=== PATIENT | male | born 1945 | race Caucasian/White ===

== ENCOUNTER → 2019-10-22 16:42 | Outpatient (CLI) | payer MEDICARE, OTHER, SELFPAY ==
[2019-10-22 17:59] LABS: PSA,Total- Diagnostic 7.76 ng/mL (0.0-4.0)
== END ==
PROVIDERS: Urology; Family Provider Family Medicine; PCP Family Medicine; Referring Provider Nurse Practitioner Adult Health; Visit Provider Nurse Practitioner Adult Health
DX: R97.20 Elevated prostate specific antigen [PSA] (principal)
CPT/HCPCS: 36415; 84153

== ENCOUNTER → 2019-11-16 08:00 | Outpatient (CLI) | payer MEDICARE, OTHER, SELFPAY ==
--- NOTE | 2019-11-16 | IMM_PTH ---
PATIENT: AUTUMN WEN LOC: [facility] U#:[id number] AGE/SX: 80/M ROOM: RE11/16/[address]: Dr. Zachary Irby MD : 1945 BED: DIS: SPEC #: [id number] RECD: 11/18/19 12:08 STATUS: VINNY ZHOU #: [id number] RENETTA: 11/16/19 00:[address]: Zachary Irby DEPT: IMMUNOHISTOCHEMISTRY RECD BY: Tiana Huertas Tissues: C - PROSTATE RIGHT Procedures: P40 (add) 34BE12 (initial) PHYSICIAN & INSTITUTION [place] [id number] SPECIMEN INFORMATION: Tissue Source: C - Right prostate, base, core biopsy Clinical Info: Elevated PSA Specimen Number: [id number] CPT code: 59931, 25536 METHODOLOGY: Deparaffinized sections of prefer/formalin-fixed tissue or PAP/DQ stained slides are incubated with monoclonal/polyclonal antibodies/oligonucleotide probes. Localization is made via biotin free immunoperoxidase method. Appropriate controls are performed and reacted as expected. Results on target cell population are indicated in the following table: RESULTS: ANTIBODY / CLONE RESULT Block C P40 (BC28) positive 34BE12 (34BE12) positive These tests were developed and their performance characteristics determined by [facility]. They may not have been cleared or approved by the U.S. Food and Drug Administration. The FDA has determined that such clearance or approval is not necessary. The above immunohistochemical/dualISH markers are ordered and reviewed by the Pathologist. INTERPRETATION: C. Right prostate, base, core biopsy: Focal high-grade prostatic intraepithelial neoplasia (HGPIN). SJ:osman 11/18/19
--- NOTE | 2019-11-16 08:00 | PROSBIL_PTH ---
PATIENT: AUTUMN WEN LOC: [facility] U#:[id number] AGE/SX: 80/M ROOM: RE11/16/[address]: Dr. Zachary Irby MD : 1945 BED: DIS: SPEC #: [id number] RECD: 11/17/19 10:33 STATUS: VINNY ZHOU #: [id number] RENETTA: 11/16/19 08:[address]: Zachary Irby DEPT: SURGICAL PATHOLOGY RECD BY: Joey Anderson Tissues: A - PROSTATE RIGHT B - PROSTATE RIGHT C - PROSTATE RIGHT D - PROSTATE LEFT E - PROSTATE LEFT F - PROSTATE LEFT Procedures: PROSTATE BX HEADER OPERATION: Prostate biopsy PRE-OP DIAGNOSIS: Elevated PSA TISSUE SUBMITTED: A - Right apex, B - Right mid, C - Right base, D - Left apex, E - Left mid, F - Left base MICROSCOPIC DIAGNOSIS A. Right prostate, apex, core biopsy: Prostatic tissue, negative for malignancy. B. Right prostate, mid, core biopsy: Prostatic tissue, negative for malignancy. Focal mild chronic inflammation. C. Right prostate, base, core biopsy: Focal high-grade prostatic intraepithelial neoplasia (HGPIN). Focal mild chronic inflammation. See comment. D. Left prostate, apex, core biopsy: Prostatic adenocarcinoma. Jayson grade: 4+3=7 Number of cores involved: 2/2 Proportion of tissue involved: ~60% Perineural invasion: Not identified. Greatest tumor length: 0.6 cm Focal acute and chronic inflammation. E. Left prostate, mid, core biopsy: Prostatic adenocarcinoma. Jayson grade: 3+3=6 Number of cores involved: 1/2 Proportion of tissue involved: ~15% Perineural invasion: Not identified. Greatest tumor length: 0.4 cm F. Left prostate, base, core biopsy: Focal high-grade prostatic intraepithelial neoplasia (HGPIN). Focal mild acute and chronic inflammation. SJ:osman 11/18/19 COMMENT C. Immunohistochemistry ([id number]) supports the above diagnosis. MICROSCOPIC DESCRIPTION Slides are reviewed. GROSS DESCRIPTION A - Received is one container designated prostate, right apex. The specimen consists of two elongated fragments of light tobin-white soft tissue measuring 1 and 1.2 cm in length and 0.1 cm in diameter. The specimen is totally submitted in one cassette. B - Received is one container designated prostate, right mid. The specimen consists of two elongated fragments of light tobin-white soft tissue each measuring 1.2 cm in length and 0.1 cm in diameter. The specimen is totally submitted in one cassette. C - Received is one container designated prostate, right base. The specimen consists of two elongated fragments of light tobin-white soft tissue each measuring 1.5 cm in length and 0.1 cm in diameter. The specimen is totally submitted in one cassette. D - Received is one container designated prostate, left apex. The specimen consists of two elongated fragments of light tobin-white soft tissue each measuring 1.2 cm in length and 0.1 cm in diameter. The specimen is totally submitted in one cassette. E - Received is one container designated prostate, left mid. The specimen consists of two elongated fragments of light tobin-white soft tissue each measuring 1.2 cm in length and 0.1 cm in diameter. The specimen is totally submitted in one cassette. F - Received is one container designated prostate, left base. The specimen consists of two elongated fragments of light tobin-white soft tissue measuring 1 and 1.5 cm in length and 0.1 cm in diameter. The specimen is totally submitted in one cassette. / SJ:rg 11/17/19 TC:0 CPT: G0146
== END ==
LOC: LABSPEC 11-17 12:24
PROVIDERS: Visit Provider Urology
DX: R97.20 Elevated prostate specific antigen [PSA] (principal)
CPT/HCPCS: 88305; 88341; 88342; G0416

== ENCOUNTER → 2019-11-16 08:00 | Outpatient (CLI) | payer MEDICARE, OTHER, SELFPAY | PROVIDERS: PCP Family Medicine; Referring Provider Urology; Visit Provider Urology | DX: R97.20 Elevated prostate specific antigen [PSA] (principal) ==

== ENCOUNTER → 2020-01-11 07:12 | Outpatient (CLI) | payer MEDICARE, OTHER, SELFPAY ==
--- NOTE | 2020-01-11 07:29 | MRI_ITS ---
STUDY: MR PELVIS WITH AND WITHOUT CONTRAST (PROSTATE) REASON FOR EXAM: Male, 74 years old. Newly diagnosed prostate cancer TECHNIQUE: Standardized multiparametric prostate MRI with T1, T2, DWI/ADC sequences were obtained in 3 orthogonal planes, and dynamic contrast enhancement sequences. 13 ml of Dotarem contrast material was administered intravenously for the contrast portion of the examination. COMPARISON: None. FINDINGS: The prostate volume measures 34 mm3. The contours of the prostate gland are lobulated. There is minimal mass effect on the bladder base. The transition zone is heterogenous. 8 x 8 mm rounded low-density nodule of the left anterior mid transitional zone is best seen on image 15 of series 6 (and correlating diffusion-weighted image 107 of series 8). PI-RADS DWI score 4 - Focal markedly hypointense on ADC and markedly hyperintense on high b-value DWI; < 1.5 cm on axial. PI-RADS T2W score 4 - Non-circumscribed, homogeneous, moderately hypointense, and <1.5 cm in greatest dimension. Contrast enhancement (+) Focal, earlier or contemporaneous with enhancement of adjacent normal prostatic tissues, and corresponding to a suspicious finding on T2WI and/or DWI. The peripheral zone is heterogenous. Areas of increased T1 signal intensity may represent areas of previous biopsy. PI-RADS DWI score 2 - Linear/wedge shaped hypointense on ADC and/or linear/wedge shaped hyperintense on high b-value DWI. PI-RADS T2W score 2 - Linear, wedge-shaped, or diffuse mild hypointensity, usually with indistinct margin. Contrast enhancement no early or contemporaneous enhancement; or diffuse multifocal enhancement NOT corresponding to a focal finding on T2W and/or DWI or focal nhancement responding to a lesion demonstrating features of BPH onT2WI (including features of extruded BPH in the PZ). There are bilateral seminal vesicle cysts, considered benign. No mass lesion or invasion depicted. The rectoprostatic angles are normal. Urinary bladder is normal without wall thickening. The vascular structures of the are normal. The visualized hollow viscus structures are normal. On postcontrast T1 images (series 12, images 8-10) and T2 axial images (series 10 images 8-10), there is abnormal T2 signal intensity and enhancement of left side of the sacrum. There is conspicuous facet arthropathy of the lumbosacral spine. MRI/Pelvis W/WO Contrast IMPRESSION: 1. PIRADS v2.1 2019 -- 4 - High (clinically significant cancer is likely) in the anterior mid left transitional zone. 2. Localized abnormal signal intensity and contrast enhancement of the upper left sacrum could be related to degenerative changes although given contrast enhancement, a bone neoplasm is possible. Dedicated thoracic spine MRI recommended. Electronically Signed: Alexys Varner MD ([place]) at 16:08 EDT , Service support ,
--- NOTE | 2020-01-11 07:54 | RAD_ITS ---
STUDY: X-RAY - ORBITS REASON FOR EXAM: Male, 74 years old. Pre MRI, h/o metal in eye -- unsure which eye TECHNIQUE: 2 view(s) of the orbits were obtained. COMPARISON: None. FINDINGS: Normal bilateral orbits without a metallic orbital foreign body. Normal visualized facial bones. Normal paranasal sinuses. The soft tissue structures are unremarkable. RAD/Orbits for Foreign Body IMPRESSION: No demonstrated metallic orbital foreign body. The patient is cleared for an MRI examination. Electronically Signed: Abad Uribe, at 8:29 EDT , Service support ,
[2020-01-11 08:01] LABS: CREATININE FINGERSTICK 0.7 mg/dL (0.70-1.30)
== END ==
PROVIDERS: PCP Family Medicine; Referring Provider Urology; Visit Provider Urology
DX: C61 Malignant neoplasm of prostate (principal)
CPT/HCPCS: 70030; 72197; A9575

== ENCOUNTER → 2020-01-18 10:13 | Outpatient (CLI) | payer MEDICARE, OTHER, SELFPAY ==
--- NOTE | 2020-01-18 10:17 | NM_ITS ---
CLINICAL: 74-year-old male with reported history of carcinoma of the prostate. WHOLE BODY 99m Tc MDP RADIONUCLIDE BONE SCINTIGRAPHY COMPARISON: MRI of the pelvis report 01/11/2020 FINDINGS: Following the intravenous administration of 27.9 mCi of 99m Tc MDP, whole body bone images reveal: 1. Increased radiopharmaceutical concentration is identified in the right anterior third rib at the costochondral junction. 2. Enhanced uptake is defined in the mid cervical spine posteriorly on the left, second-fifth lumbar vertebra, left posterior sacrum, right knee, bilateral elbows, left wrist, right and left hands, glenohumeral compartments of both shoulders. 3. The remaining skeletal structures are scintigraphically unremarkable with normal-appearing renal images and urinary bladder activity identified. A subtle diffuse increase in tracer uptake is noted in the left frontal, lacrimal and zygomatic osseous structures. NM/Bone Scan Whole Body IMPRESSION: 1. The increase in radiopharmaceutical concentration identified in the right anterior third rib is most consistent with trauma-fracture. Facilitated uptake noted in the left hemicalvarium may be further investigated with plain film radiography in the setting of known prostate carcinoma. 2. Degenerative arthritis appears expressed in the cervical and lumbar spine, bilateral shoulders and elbows, left wrist, hands bilaterally, the right knee most consistent with degenerative arthritis. A component of large articulation synovial inflammation is a diagnostic consideration involving the glenohumeral compartments of both shoulders. 3. There is no definitive typical scintigraphic evidence of diffuse axial skeletal metastatic disease. Electronically Signed: Juventino Godinez DO at 23:29 EDT Tel , Service support ,
== END ==
PROVIDERS: PCP Family Medicine; Referring Provider Urology; Visit Provider Urology
DX: C61 Malignant neoplasm of prostate (principal)
CPT/HCPCS: 78306

== ENCOUNTER → 2020-02-27 10:46 | Outpatient (CLI) | payer MEDICARE, OTHER, SELFPAY ==
[2020-02-27 11:50] LABS: PSA,Total - Annual Screen 6.34 ng/mL (0.00-4.00)
== END ==
PROVIDERS: Family Provider Family Medicine; PCP Family Medicine; Referring Provider Nurse Practitioner Adult Health; Visit Provider Nurse Practitioner Adult Health
DX: R97.20 Elevated prostate specific antigen [PSA] (principal)
CPT/HCPCS: 36415; 84153; G0103

== ENCOUNTER 2020-03-23 05:56 | Day surgery (SDC) | payer MEDICARE, OTHER, SELFPAY ==
[2020-02-27 11:22] LABS: Hematocrit 43.3 % (40-54); Hemoglobin 14.1 g/dL (13.0-16.5); Mean Corp Hgb Conc 32.6 g/dL (32-36); Mean Corpuscular Hgb 29.5 pg (27.0-32.0); Mean Corpuscular Volume 90.6 fL (80-94); Mean Platelet Vol. 10.4 fl (6.2-12.0); Platelet Count 201 K/mm3 (150-450); RBC Distribution Width CV 13.3 % (11.6-14.6); RBC Distribution Width SD 44.2 fl (35.1-43.9); Red Blood Count 4.78 M/mm3 (4.6-6.2); White Blood Count 6.1 K/mm3 (4.4-11.0)
--- NOTE | 2020-02-27 11:29 | EKG12_ITS ---
Test Reason : PRE-OP Blood Pressure : / mmHG Vent. Rate : 064 BPM Atrial Rate : 064 BPM P-R Int : 174 ms QRS Dur : 130 ms QT Int : 422 ms P-R-T Axes : 029 -02 054 degrees QTc Int : 435 ms Normal sinus rhythm Left bundle branch block Abnormal ECG Confirmed by LOUIS GARCIA, CASEY ([id number]), science editor MICHELE STOKES ([id number]) on 02/29/2020 3:12:00 PM Referred By: Zachary Irby Confirmed By:CASEY MYERS MD
[2020-02-27 11:45] LABS: Anion Gap 5 (5-15); BUN 23 mg/dL (7-18); Calcium,Total 8.6 mg/dL (8.5-10.1); Chloride 107 mmol/L (98-107); Creatinine, Serum 0.85 mg/dL (0.70-1.30); EST Glomerular Filtration Rate 94 mL/min (>60); Est Glom Filt Rate - Afr Amer 113 mL/min (>60); Glucose 133 mg/dL (74-106); Potassium 4.2 mmol/L (3.5-5.1); Sodium Level 141 mmol/L (136-145)
[2020-03-02 14:00] VITALS: BMI 25.7
[2020-03-23] VITALS (14 sets, daily range): BP systolic 92–119; BP diastolic 47–72; PULSE 55–78; RESP 15–18; TEMP 36–37.1; O2SAT 94–99; BMI 24.4
--- NOTE | 2020-03-23 | PROST_PTH ---
PATIENT: AUTUMN WEN LOC: [facility] [place] U#:[id number] AGE/SX: 74/M ROOM: RE03/23/[address]: Dr. Zachary Irby MD : 1945 BED: DIS: 03/24/2020 SPEC #: [id number] RECD: 03/23/20 13:59 STATUS: VINNY REQ #: [id number] RENETTA: 03/23/20 00:[address]: Zachary Irby DEPT: SURGICAL PATHOLOGY RECD BY: Isaiah Jovel ENTERED: 03/23/20 14:00 SP TYPE: PROSTATE OTHR DR: Dr. Corwin Bianchi, DO Tissues: A - Lymph node of pelvis, NOS B - Lymph node of pelvis, NOS C - Prostate, NOS D - Prostate, NOS Procedures: Surgery Specimen Level IV Surgery Specimen Level HEADER OPERATION: Lap robotic radical prostatectomy PRE-OP DIAGNOSIS: Prostatic adenocarcinoma TISSUE SUBMITTED: A - Right lymph node, B - Left lymph node, C - Apical margin, D - Prostate MICROSCOPIC DIAGNOSIS A. Right lymph node, biopsy: A piece of adipose tissue, negative for malignancy. No lymph node tissue is identified. B. Left lymph node, biopsy: One out of one lymph node, negative for metastatic carcinoma. C. Apical margin, biopsy: A piece of fibroadipose tissue, negative for carcinoma. D. Prostate, radical prostatectomy: Prostatic adenocarcinoma. See cancer summary in the comment section. SJ:osman 03/25/20 COMMENT PROSTATE CANCER (RADICAL) SUMMARY: Procedure: Radical Prostatectomy Prostate Size: Weight: 50 gm Size: 4.5 cm transversely, 4 cm superior inferiorly and 4 cm anterior posteriorly. Histologic type: Acinar adenocarcinoma Histologic grade: Grade group 4 (Pinson score 3+5=8) Percentage of Pattern 5: ~30% Tumor Quantitation: Estimated percentage of prostate involved by tumor: ~20% Tumor size: Left lobe - 1.4 x 1 measured microscopically, and about 3.5 cm craniocaudally, estimated (the tumor involves apical, mid and basal portion of prostate) Right lobe - 0.5 x 0.5 cm (measured microscopically and tumor involves apical and mid portion of the lobe. No gross nodule is identified. Extraprostatic Extension: Not present Urinary Bladder Neck Invasion: Not identified Seminal Vesicle Invasion: Not identified Lymphovascular Invasion: Not identified Perineural Invasion: Present Margins: Uninvolved by invasive carcinoma. See comment below. Regional Lymph Nodes: Number of lymph nodes involved by carcinoma: 0 Total Number of Lymph Nodes Examined: 1 Treatment Effect: No known presurgical therapy. Additional Pathologic Findings: Focal high-grade prostatic intraepithelial neoplasia. - Chronic inflammation. - Benign prostatic hyperplasia, glandular and stromal type. PATHOLOGIC STAGE: pT2 pN0 pMx The above summary is in compliance with [employer] [place] [employer] (CAP) Cancer Protocols Checklist and [place] [employer] Committee on Cancer (AJCC), Staging Manual, 8th Ed. The apical margin submitted separately is negative for carcinoma. The tumor is present in the apical margin submitted enface (block1) in the radical prostatectomy specimen (specimen D). Please make reference to previous specimen ([id number]) right prostate base and left prostate base, core biopsy with diagnosis of focal high-grade prostatic intraepithelial neoplasia (HGPIN) and left prostate, apex and left prostate, mid, core biopsy with diagnosis of prostatic adenocarcinoma. Case has been reviewed in consultation with Dr. Soliz who concurs with the above diagnosis. IDC:AM MICROSCOPIC DESCRIPTION Slides are reviewed. GROSS DESCRIPTION A - Received in fixative is one container labeled with the patient's name and designated right lymph node. The specimen consists of an irregular fragment of yellow soft tissue measuring 3.5 x 2 x 0.2 cm. The specimen is submitted in its entirety in one cassette. / AM: 03/23/20 B - Received in fixative is one container labeled with the patient's name and designated left lymph node. The specimen consists of an irregular fragment of yellow soft tissue measuring 3.5 x 2 x 0.2 cm. The specimen is sectioned and totally submitted in two cassettes. / AM: 03/23/20 C - Received in fixative is one container labeled with the patient's name and designated apical margin. The specimen consists of an irregular fragment of rubbery, pink tissue measuring 0.6 x 0.5 x 0.1 cm. The specimen is totally submitted in one cassette. / AM: 03/23/20 D - Received in fixative is one container labeled with the patient's name and designated prostate. The specimen consists of a prostate measuring 4.5 cm transversely, superior inferior margin is 4 cm, anterior posterior margin is 4 cm. The seminal vesicles together measure 4.5 x 4 x 1 cm. The prostate gland weighs 50 gm. The specimen is differentially inked as follows: right - blue, left - green, anterior - red, and entire posterior surface - black. / AM:osman 03/23/20 Serial sections do not reveal mass lesions. [place] [employer] sections are submitted as follows: 1 - distal urethral margin, shave, 2 - bladder neck, shave, 3 - seminal vesicles, 4 - most basal section of prostate, 5-9 - apex, 8-15 - mid portion of prostate, 16-18 - base of prostate. Note, approximately 95% of the prostate is submitted for microscopic examination. / AM:osman 03/24/20 TC:0 CPT: 61538, 57252 x3
[2020-03-23] MEDS: Lactated Ringers 1,000 ML 100 ML IV ×4 (06:51→11:43)
--- NOTE | 2020-03-23 07:23 | HP.PCM_ITS ---
History of Present Illness Date of Admission: 03/23/20 Chief Complaint: Prostate cancer The patient is a 74 year old male with prostate cancer was elected undergo radical prostatectomy. We plan to proceed with surgery today all his questions were addressed. Past Medical History Past Medical History (Chronic Problems): Chronic Problems (Last Reviewed 03/02/20 @ 16:[address] Charles Fernando MD) Hyperlipidemia (Chronic) History of left heart catheterization (Chronic 06/12/13) Medical History: Medical History (Last Reviewed 03/02/20 @ 16:[address] Charles Fernando MD) Preop cardiovascular exam (Acute) Z01.810 Hyperlipidemia (Chronic) E78.5 Family history of malignant neoplasm of prostate (Acute) Z80.42 Allergies No Known Allergies Allergy (Verified 03/23/20 06:33) Home Medications: Ambulatory Orders Medication Instructions Recorded Echinacea 500 mg PO DAILY 02/26/20 Glucos Sul 2Kcl/MSM/Chond/C/Mn 1 pkt PO BID 02/26/20 [Glucosamine Chondroitin Cap] Multivitamin with Minerals 1 ea PO DAILY 02/26/20 [Multiple Vitamin] lactobacillus combination no.8 3 3,000 mmu cells PO DAILY 03/01/20 billion cell capsule Surgical History: Surgical History (Last Reviewed 03/02/20 @ 16:[address] Charles Fernando MD) History of left heart catheterization (Chronic) Onset Date: 06/12/13 Z98.890 History of facial surgery Z98.890 fixation of fractured cheekbone History of prostate biopsy Z98.890 History of repair of hiatal hernia Z98.890, Z87.19 Surgical History: no surgical history Smoking Status: Never smoker Tobacco Use: Non-smoker Review of Systems Constitutional: Denies: Chills, Fever, Weight Change HEENT: Denies: Head Aches, Sinus Congestion, Sinus Drainage Cardiovascular: Denies: Chest Pain, Palpitations Respiratory: Denies: Cough, Shortness of breath at rest, Sputum production Gastrointestinal: Denies: Abdominal Pain, Nausea, Vomiting Genitourinary: Denies: Dysuria Musculoskeletal: Denies: Joint Pain, Joint Tenderness Skin: Denies: Rash, Wounds Neurological: Denies: Numbness, Tingling, Focal weakness Psychiatric: Denies: Anxiety, Depression, Homicidal Ideations, Suicidal Ideations Hematologic/ Lymphatic: Denies: Easy Bruising, Easy Bleeding VTE Information - Inpt Only VTE Present on Admission: No VTE Mechan Device Prophylaxis: SCD's - Physical Exam Vitals/I&O's: Vital Signs Temp Pulse Resp BP Pulse Ox 98.1 F 76 15 119/65 97 03/23/20 06:34 03/23/20 06:34 03/23/20 06:34 03/23/20 06:34 03/23/20 06:34 Oxygen Delivery Method Room Air Weight: 64.5 kg Body Mass Index (BMI) 24.4 General: Alert, Oriented x3, Cooperative HEENT: Atraumatic, PERRLA, EOMI, Normocephalic Neck: Supple, No JVD, Negative Carotid Bruits Lungs: Clear to auscultation, Normal air movement Cardiovascular: Regular rate, No murmurs Abdomen: Bowel Sounds Present, Soft, Non Tender Extremities: No edema, Capillary Refill Less than 3 Seconds Skin: No rashes, No breakdown Musculoskeletal: No Tenderness to Palpation of Joints or Extremities Neurological: Cranial nerves II-XII grossly intact Psych/Mental Status: Normal Affect, Appropriate Laboratory Results 03/23/20 07:08: Blood Type Pending, Antibody Screen Pending 03/23/20 17:00: COVID-19 (TERA) Not Detected Current Medications Cefazolin Sodium 2 gm/ Sodium (Chloride) 110 mls @ 150 mls/hr IV PREOP ONE Stop: 03/23/20 07:43 Lactated Ringer's () 1,000 mls @ 100 mls/hr IV .Q10H [facility] Last Admin: 03/23/20 06:51 Dose: 100 mls/hr Documented by: Lactated Ringer's () 1,000 mls @ 100 mls/hr IV .Q10H [facility] Last Admin: 03/23/20 06:52 Dose: 100 mls/hr Documented by: Assessment/Plan All Active Problems (Last Reviewed 03/02/20 @ 16:[address] Charles Fernando MD) Dizziness (Acute) Left bundle branch block (Acute) Preop cardiovascular exam (Acute) Family history of malignant neoplasm of prostate (Acute) 74-year-old male with prostate cancer plan to proceed with a radical prostatectomy bilateral nerve sparing and bilateral lymph node dissection. Please see my office notes for full details we talked about the risk of the surgery including risk of bleeding, infection, incontinence, erectile dysfunction, and the risk of anesthesia with surgery. All his questions were addressed and proceed he signed the consent form.
[2020-03-23] MEDS: Cefazolin 2 GM in 0.9% Normal Saline 100 ML IV (07:24)
--- NOTE | 2020-03-23 07:29 | DCINST_ITS ---
Discharge Diet: Light diet - advance as tolerated Discharge Activity: May Not Drive, May not drive while taking narcotic pain medications., May Shower Return to work on:: 05/04/20 May shower in (days): 1 Lifting Restrictions: no lifting > 10 pounds for 6 weeks Call your doctor if your incision/area has: Continuous Slow Oozing, Sudden Increased Bleeding, Increased Pain/ Swelling, Increased Redness, Foul Smelling Discharge, Swelling at the incision site Call your doctor if you observe: Fever of 101 or Higher, Inability to have a bowel movement, Uncontrolled pain Suture Line Care: Avoid Pulling/Pushing, Avoid Pinching/Bending Cleanse incision/area with: Soap & Water Catheter: Sanders to leg bag, Sanders to large bag Drain: [place] Instructions: Radical Prostatectomy Allergies/Adverse Reactions: Allergies No Known Allergies Allergy (Verified 03/23/20 06:33) Medications to take at Discharge Echinacea 500 mg PO DAILY 02/26/20 Glucos Sul 2Kcl/MSM/Chond/C/Mn [Glucosamine Chondroitin Cap] 1 pkt PO BID 02/26/20 Multivitamin with Minerals [Multiple Vitamin] 1 ea PO DAILY 02/26/20 lactobacillus combination no.8 3 billion cell capsule 3,000 mmu cells PO DAILY 03/01/20 Orders to be completed after discharge: 12 Lead EKG [[facility]] Time Frame: 02/26/20, Facility: [facility], Location: Cardiovascular Services Primary Care Physician: Corwin Bianchi DO [Primary Care Provider] - Test Results: Test results from this visit will be discussed in further detail at your follow- up appointment, if applicable. Please Follow Up With: Zachary Irby MD When: please call to make an appointment- 10 days Proposed Discharge Date: 03/24/20
[2020-03-23] MEDS: Bupivacaine Mpf 0.5% 30 ML VIAL (07:57)
--- NOTE | 2020-03-23 10:39 | OP.PCM_ITS ---
Report of Operation Date of Procedure: 03/23/20 Pre-Operative Diagnosis: Prostate cancer Post-Operative Diagnosis: Same Surgery/Procedure Performed:: Multiple procedures, #1 laparoscopic robotic assisted radical prostatectomy, #2 bilateral pelvic lymph node dissection, #3 suture suspension of the urethra to prevent incontinence Description of Surgical Findings:: 74-year-old male with a history of prostate cancer is elected to go no radical p rostatectomy order to do bilateral nerve sparing. 74-year-old male was taken back to the operating room at the smooth induction of general anesthesia he was placed prone on the table we went through the umbilicus and placed the camera port the robotic ports were placed into the peritoneum docked the robot we then went posterior to the bladder open up the peritoneum over the seminal vesicle and vas deferens dissected out the vas deferens and seminal vesicles all the way up to the apex of the prostate pulled out of the pelvis drop the bladder created the space of Retzius with the bladder on traction I then performed the lymph node dissection on the left side of the pelvic lymph node sosa of the external iliac vein 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 We then went to the prostate but the prostate on traction incised endopelvic fascia on both the right and left sides we placed a stitch in the dorsal vein complex came back to the bladder neck release the prostate and the bladder off the prostate I found a very large prostate had to do a very wide dissection of the bladder and it to get all the prostate off and then went posterior once we got the bladder dissected off the prostate the seminal vesicle and vas deferens were ready dissected out but the prostate and traction we released the neurovascular bundle on the right side placed the took the clips on the right pedicle and then released release neurovascular bundles on the right side all the way to the apex and went to the left left side release the neurovascular bundles the left side took the pedicle to clips the nerve sparing the left side was not as good as the right but still there was a nerve sparing performed. After this then the prostate transected through the dorsal vein complex there is no bleeding we lowered the pressure there was no bleeding we then transected through the urethra remove the prostate was sent off the apical tissue to check the margin and the lymph nodes were sent off as well. Placed the prostate in Endo Catch bag and then we reconstructed the bladder neck with a 3-0 Vicryl once this was reconstructed then we did a suture suspension of the urethra and then the using a 3-0 Vicryl and then we completed the anastomosis with the running V lock stitch between the bladder neck and the urethra. Once the anastomosis was completed we extracted the prostate through the lateral port and closed the umbilical port with a Liban Soto stitch the robot was undocked we inspected the abdomen after the ports were removed there is no bleeding or signs of injury or and all the ports were closed and then that we closed the skin with subcuticular stitches patient's anesthetic was reversed taken back to PACU in good condition. Type of Anesthesia:: General Drains: loya - Admit VTE Documentation VTE Present on Admission: No VTE Mechan Device Prophylaxis: SCD's
[2020-03-23] MEDS: Ketorolac 15 MG/ML Vial IV ×3 (11:19→21:46)
[2020-03-23] MEDS: Ciprofloxacin 400 MG/200 ML BAG 200 MG IV ×2 (12:04→21:46)
[2020-03-23] MEDS: 0.9% Saline Lock 10 ML Syringe IV (17:13)
--- NOTE | 2020-03-23 19:44 | NURSING ---
called Duyen and provided with update on pt status
[2020-03-23] MEDS: 0.45% Normal Saline 1,000 ML 125 ML IV (21:45)
[2020-03-24 01:26] VITALS: BP 101/64; PULSE 67; RESP 16; TEMP 36.9; O2SAT 94; BMI 24.4
[2020-03-24] MEDS: Ketorolac 15 MG/ML Vial IV (04:49)
[2020-03-24] MEDS: 0.45% Normal Saline 1,000 ML 125 ML IV (04:51)
[2020-03-24 05:03] VITALS: BP 100/60; PULSE 64; RESP 17; TEMP 37; O2SAT 95
[2020-03-24 05:05] VITALS: BMI 24.4
[2020-03-24 06:12] LABS: Hematocrit 35.6 % (40-54); Hemoglobin 11.3 g/dL (13.0-16.5); Mean Corp Hgb Conc 31.7 g/dL (32-36); Mean Corpuscular Hgb 29.5 pg (27.0-32.0); Mean Platelet Vol. 11.4 fl (6.2-12.0); Platelet Count 151 K/mm3 (150-450); RBC Distribution Width CV 13.7 % (11.6-14.6); RBC Distribution Width SD 46.6 fl (35.1-43.9); Red Blood Count 3.83 M/mm3 (4.6-6.2); White Blood Count 6.5 K/mm3 (4.4-11.0)
[2020-03-24 06:46] LABS: Anion Gap 7 (5-15); BUN 19 mg/dL (7-18); BUN/Creat Ratio 21.3 RATIO (10-20); Chloride 104 mmol/L (98-107); Creatinine, Serum 0.89 mg/dL (0.70-1.30); EST Glomerular Filtration Rate 89 mL/min (>60); Est Glom Filt Rate - Afr Amer 107 mL/min (>60); Estimated Creatinine Clearance 62.82 ml/min; Glucose 83 mg/dL (74-106); Potassium 3.9 mmol/L (3.5-5.1); Sodium Level 136 mmol/L (136-145)
--- NOTE | 2020-03-24 07:37 | DS.PCM_ITS ---
Discharge Date and Diagnosis Date of Admission: 03/23/20 Date of Discharge: 03/24/20 - Secondary Discharge Diagnosis Chronic Problems: Chronic Problems (Last Reviewed 03/02/20 @ 16:[address] Charles Fernando MD) Hyperlipidemia (Chronic) History of left heart catheterization (Chronic 06/12/13) Hospital Course and Treatment Operations: - - Radical robotic prostatectomy Procedures: None Summary of Care Provided: The patient is a 74 year old healthy male who has a history of prostate cancer elected to undergo a radical robotic prostatectomy surgery went well, overnight had no issues, and today is to advance diet to regular food ambulate and he can go home later today with a catheter. - Physical Exam Vitals/I&O's: Vital Signs Temp Pulse Resp BP Pulse Ox 98.6 F 64 17 100/60 95 03/24/20 05:03 03/24/20 05:03 03/24/20 05:03 03/24/20 05:03 03/24/20 05:03 Oxygen Flow Rate (L/min) 6 Oxygen Delivery Method Room Air Weight: 64.5 kg Body Mass Index (BMI) 24.4 Intake and Output for Last 24 Hours 03/22/20 03/23/20 03/24/20 23:59 23:59 23:59 Intake Total 4671.08 / 4671.08 2921.42 / 2921.42 Output Total 775 / 775 1050 / 1050 Balance 3896.08 / 3896.08 1871.42 / 1871.42 General: Alert, Oriented x3, Cooperative HEENT: Atraumatic, PERRLA, EOMI, Normocephalic Neck: Supple, No JVD, Negative Carotid Bruits Lungs: Clear to auscultation, Normal air movement Cardiovascular: Regular rate, No murmurs Abdomen: Bowel Sounds Present, Soft, Non Tender Extremities: No edema, Capillary Refill Less than 3 Seconds Skin: No rashes, No breakdown Musculoskeletal: No Tenderness to Palpation of Joints or Extremities Neurological: Cranial nerves II-XII grossly intact Psych/Mental Status: Normal Affect, Appropriate Laboratory Results 03/23/20 07:08: Blood Type A POSITIVE, Antibody Screen NEGATIVE 03/24/20 05:25: WBC 6.5, RBC 3.83 L, Hgb 11.3 L, Hct 35.6 L, MCV 93.0, MCH 29.5, MCHC 31.7 L, RDW Std Deviation 46.6 H, RDW Coeff of Cynthia 13.7, Plt Count 151, MPV 11.4 03/24/20 05:25: Sodium 136, Potassium 3.9, Chloride 104, Carbon Dioxide 25.0, Anion Gap 7, BUN 19 H, Creatinine 0.89, Estim Creat Clear Calc 62.82, Est GFR (MDRD) Af Amer 107, Est GFR (MDRD) Non-Af 89, BUN/Creatinine Ratio 21.3 H, Glucose 83, Calcium 8.0 L Current Medications Acetaminophen (Tylenol) 325 - 650 mg PO Q4H PRN PRN PRN Reason: pain score 1-10/fever/headache Hydrocodone Bitart/Acetaminophen ([place] 5mg-325mg) 1 - 2 tablet PO Q6H PRN PRN PRN Reason: Pain Score 1-5/10 Belladonna Alkaloids/Opium (B & O) 60 mg RECTAL Q6H PRN PRN PRN Reason: Spasm Sodium Chloride () 250 mls @ 15 mls/hr IV .[id number] PRN PRN Reason: Saline Flush Sodium Chloride () 250 mls @ 15 mls/hr IV .[id number] PRN PRN Reason: Additional IVPB Infusion Sodium Chloride () 1,000 mls @ 125 mls/hr IV .Q8H [facility] Last Admin: 03/24/20 04:51 Dose: 125 mls/hr Documented by: Ketorolac Tromethamine (Toradol (Bkc)) 15 mg IV Q6H [facility] Stop: 03/24/20 16:01 Last Admin: 03/24/20 04:49 Dose: 15 mg Documented by: Metoclopramide HCl (Reglan) 10 mg IV Q8H PRN PRN PRN Reason: Nausea/vomiting Morphine Sulfate () 1 mg IV Q4H PRN PRN PRN Reason: Pain Score 6-10/10 Ondansetron HCl (Zofran) 4 mg IV Q8H PRN PRN Reason: Nausea Sodium Chloride () 10 - 40 ml IV UD PRN PRN Reason: SALINE FLUSH Last Admin: 03/23/20 17:13 Dose: 10 ml Documented by: Tolterodine Tartrate (Detrol La) 4 mg PO DAILY PRN PRN PRN Reason: Spasms Discharge Diet: Light diet - advance as tolerated Discharge Activity: May Not Drive, May not drive while taking narcotic pain medications., May Shower Return to work on:: 05/04/20 May shower in (days): 1 Call your doctor if your incision/area has: Continuous Slow Oozing, Sudden Increased Bleeding, Increased Pain/ Swelling, Increased Redness, Foul Smelling Discharge, Swelling at the incision site Call your doctor if you observe: Fever of 101 or Higher, Inability to have a bowel movement, Uncontrolled pain Suture Line Care: Avoid Pulling/Pushing, Avoid Pinching/Bending Cleanse incision/area with: Soap & Water Catheter: Sanders to leg bag, Sanders to large bag Drain: [place] Home Medications: Medications to take at Discharge Echinacea 500 mg PO DAILY 02/26/20 Glucos Sul 2Kcl/MSM/Chond/C/Mn [Glucosamine Chondroitin Cap] 1 pkt PO BID 02/26/20 Multivitamin with Minerals [Multiple Vitamin] 1 ea PO DAILY 02/26/20 lactobacillus combination no.8 3 billion cell capsule 3,000 mmu cells PO DAILY 03/01/20 Ciprofloxacin [Cipro] 500 mg PO BID #20 tab 03/23/20 Docusate Sodium [Colace] 100 mg PO BID #20 cap 03/23/20 Hydrocodone/Acetaminophen [[place] 5-325 Tablet] 1 ea PO Q4H PRN PRN 5 Days #14 tab 03/23/20 Following Prescrptions Were Given to Patient: Ciprofloxacin [Cipro] 500 mg PO BID #20 tab Transmission Status: Received by [id number] Docusate Sodium [Colace] 100 mg PO BID #20 cap Transmission Status: Received by [id number] Hydrocodone/Acetaminophen [[place] 5-325 Tablet] 1 ea PO Q4H PRN PRN 5 Days #14 tab PRN Reason: Pain Score 1-10/10 Transmission Status: Received by [id number] Other Amb Orders: 12 Lead EKG [[facility]] Time Frame: 02/26/20, Facility: [facility] [place], Location: Cardiovascular Services Primary Care Physician: Corwin Bianchi DO [Primary Care Provider] - Please Follow Up With: Zachary Irby MD When: please call to make an appointment- 10 days Patient Instructions: Radical Prostatectomy Medical Necessity - Tobacco Use Smoking Status: Never smoker Tobacco Use: Non-smoker Meaningful Use Info Meaningful Use Diagnoses (Choose all that apply): None applicable
[2020-03-24 08:12] VITALS: BP 106/54; PULSE 87; RESP 18; TEMP 37; O2SAT 98
[2020-03-24 08:29] VITALS: BMI 24.4
== END 2020-03-24 09:14 | disposition home or self-care (01) ==
LOC: SDC 05:56 → AC 05:57 → MS3 03-24 08:58
PROVIDERS: Anesthesiology; PCP Family Medicine; Referring Provider Urology; Visit Provider Urology
PROC: 0VT04ZZ Resection of Prostate, Percutaneous Endoscopic Approach (ICD-10-PCS; CPT 55866; principal; 2020-03-23 07:10)
DX: C61 Malignant neoplasm of prostate (principal); Z11.59 Encounter for screening for other viral diseases; Z80.42 Family history of malignant neoplasm of prostate; Z86.2 Personal history of diseases of the blood and blood-forming organs and certain disorders involving the immune mechanism
CPT/HCPCS: 00865; 38570; 55866; S2900; 36415; 80048; 85027; 86850; 86900; 86901; 87635; 88305; 88307; 88309; 93005; 99251; J7120; A4216; G0463; J0744; J2405; U0003

== ENCOUNTER 2020-06-02 11:37 | Emergency (ER) | payer MEDICARE, OTHER, SELFPAY ==
[2020-03-23 13:15] VITALS: BMI 24.4
[2020-06-02 11:40] VITALS: BP 117/68; PULSE 62; RESP 16; TEMP 36.3; O2SAT 96; BMI 23.4
--- NOTE | 2020-06-02 12:07 | ED.DCSUM_ITS ---
History of Present Illness Chief Complaint: General Illness Informant: Patient Narrative: 75-year-old male presenting with swallowing dysfunction. He states he feels like it is difficult to get food down. Patient had some kind of esophageal procedure done at [facility] by doctors by Dr. Saleh. He is having difficulty telling me what the procedure was. He brought no medical records with him. He states he is on no chronic medications. Does state that he recently had prostatectomy but was doing fine on those regards. Has not reached out to the him for any kind of follow-up. He called his GI doctor who is out of town. His GI doctors office recommended that he come to [place] [facility] however they did not want a go to [place]. Patient states that he was able to eat eggs and drink water this morning. he states if he chews food well it will stay down. He is able to drink water currently. He does describe some burning in his stomach. He states he is making urine and stool. Past Medical History - Allergies and Home Meds Allergies/Adverse Reactions: Allergies No Known Allergies Allergy (Verified 06/02/20 11:40) Primary Care Physician: Ruddy Quintero MD [STAFF PHYSICIAN] - Corwin Bianchi DO [Primary Care Provider] - Prior records reviewed: Yes Past Medical History: - - Hiatal hernia Surgical History: - - Felix fundoplication Smoking Status: Never smoker Review of Systems General: Denies: Chills, Fever, Sweats Eyes: Denies: Visual changes - bilaterally, Diplopia ENT: Reports: Rhinorrhea, Sore throat - Intermittent difficulty swallowing food and less chewed well. Cardiovascular: Denies: Chest pain, Palpitations Respiratory: Denies: Dyspnea, Cough, Dyspnea on exertion Gastrointestinal: Denies: Abdominal pain, Nausea, Vomiting, Diarrhea, Melena, Hematochezia Musculoskeletal: Denies: Myalgias, Arthralgias Skin: Denies: Rash, Abscess Neurological: Denies: Headache Psych: Denies: Depression, Anxiety Physical Exam Vital Signs/Narrative: Vital Signs Temp Pulse Resp BP Pulse Ox 06/02/20 11:40 97.4 F L 62 16 117/68 96 Inital Vital Signs reviewed: Yes General: Well nourished, Well developed Head: Normocephalic Eyes: Perrl, EOMI ENT: Moist mucous membranes Cardiovascular: Regular rate, Regular rhythm Respiratory: No distress Abdomen: Soft, Nontender, Nondistended, Normal bowel sounds Extremities: Negative for: Nontender, No edema Skin: Negative for: Normal color, No rash Neurological: Alert, Oriented x3 Psychological: Normal affect Diagnostic/Tx/Re-eval - Medical Decision Making Patient presents with difficulty swallowing. He states that sometimes food gets stuck and sometimes it does not. Currently he was able to eat breakfast and drink water and had no difficulty. I counseled him that he did not need anything emergently done but he probably did need an upper endoscopy and he should probably follow-up with his GI doctor. I did review the medical record and I believe based on what I have seen it looks like he had a dilatation of his esophagus by Dr. Saleh. The patient was still able to describe the procedure in full but does state that he went down his throat and he did not do any intra-abdominal surgery. Patient was counseled that he should try to follow-up with either him or his GI doctor on an outpatient basis. If his food becomes impacted and he cannot pass it that he should come back to the emergency room. His did express concern that he may become dehydrated. We did discuss that he states he can drink water however he does not want to and I did encourage him to drink water more frequently throughout the day instead of in large volumes to minimize the discomfort. She also was concerned that he may become weak because he is not eating a lot of food unless it soft. I encouraged him to try to supplement his diet with some Ensure or other similar drinks that are easily palatable. He acknowledged understanding of this. Patient will be discharged home in stable condition. Impression: 1. Dysphagia ED Disposition - Plan for ED Patient: Disposition: Home or Assisted Living Instructions: ED Dysphagia Adult Prescriptions: Sucralfate [Carafate] 1 gm PO 4X/DAY #30 [facility] [place] Transmission Status: Received by [facility]/pharmacy #[id number] Referrals: Corwin Bianchi DO [Primary Care Provider] - Ruddy Quintero MD [STAFF PHYSICIAN] -
[2020-06-02] MEDS: Mag Hydrox/Al Hydrox/Simeth 30 ML UDC PO (12:20)
== END 2020-06-02 12:42 | disposition home or self-care (01) ==
LOC: ED 12:36
PROVIDERS: Emergency Provider Student in an Organized Health Care Education/Training Program; PCP Family Medicine
DX: R13.10 Dysphagia, unspecified (principal); J34.89 Other specified disorders of nose and nasal sinuses; J02.9 Acute pharyngitis, unspecified
CPT/HCPCS: 99283

== ENCOUNTER → 2020-08-22 08:36 | Outpatient (CLI) | payer MEDICARE, OTHER, SELFPAY ==
[2020-08-22 09:49] LABS: PSA,Total- Diagnostic < 0.01 ng/mL (0.0-4.0)
== END ==
PROVIDERS: PCP Family Medicine; Referring Provider Urology; Visit Provider Urology
DX: C61 Malignant neoplasm of prostate (principal)
CPT/HCPCS: 36415; 84153

== ENCOUNTER → 2021-02-21 06:18 | Outpatient (CLI) | payer MEDICARE, OTHER, SELFPAY ==
[2021-02-21 07:40] LABS: PSA,Total- Diagnostic < 0.01 ng/mL (0.0-4.0)
== END ==
PROVIDERS: PCP Family Medicine; Referring Provider Urology; Visit Provider Urology
DX: C61 Malignant neoplasm of prostate (principal)
CPT/HCPCS: 36415; 84153

== ENCOUNTER → 2021-05-22 08:49 | Outpatient (CLI) | payer MEDICARE, OTHER, SELFPAY ==
--- NOTE | 2021-05-22 08:51 | ECHOCS_ITS ---
Reason For Study: LV Dysfunction, Fatigue Procedure This was a 2D Doppler, Color Flow transthoracic echocardiogram. Contrast injection was performed. Exam performed in department. Left Ventricle Normal LV size. The estimated ejection fraction is 45 %. There is evidence of diastolic dysfunction. No regional wall motion abnormalities noted. Right Ventricle Normal RV size. Normal systolic function. Atria Normal left atrium. Normal right atrium. No doppler evidence for ASD. Mitral Valve There is moderate mitral annular calcification. There is no mitral valve stenosis. No mitral valve insufficiency. Tricuspid Valve There is no tricuspid stenosis. Mild (1+) tricuspid valve insufficiency. Pulmonary artery systolic pressure is 30-35 mmHg. Aortic Valve Trisinus/trileaflet aortic valve. There is no aortic stenosis. Mild (1+) aortic valve insufficiency. Pulmonic Valve There is no pulmonic valvular stenosis. Trivial pulmonic valve insufficiency. Great Vessels Mildly dilated aortic root. Pericardium/Pleural No pericardial effusion. Medication Diluted definity 3ml given slow IV push to enhance endocardial definition. MMode/2D Measurements & Calculations LVIDd: 4.7 cm IVSd: 0.91 cm Ao root diam: 4.0 cm LVIDs: 3.3 cm LVPWd: 1.0 cm RVDd: 4.2 cm FS: 29.6 % LAV(MOD-bp): 46.4 ml LVAd ap4: 31.6 cm2 LVAd ap2: 32.8 cm2 LAV(MOD-bp) Indexed: 27.6 ml/m2 LVLd ap4: 8.4 cm LVLd ap2: 8.3 cm LAV(MOD-sp2): 34.4 ml EDV(MOD-sp4): 99.7 ml EDV(MOD-sp2): 105.6 ml LAV(MOD-sp4): 56.5 ml EDV(sp4-el): 100.6 ml EDV(sp2-el): 110.3 ml LVAs ap4: 18.5 cm2 LVAs ap2: 19.2 cm2 LVLs ap4: 7.4 cm LVLs ap2: 6.8 cm ESV(MOD-sp4): 40.1 ml ESV(MOD-sp2): 45.0 ml ESV(sp4-el): 39.3 ml ESV(sp2-el): 46.1 ml EF(MOD-sp4): 59.8 % EF(MOD-sp2): 57.4 % EF(sp4-el): 61.0 % SV(MOD-sp4): 59.6 ml SV(MOD-sp2): 60.6 ml SV(sp4-el): 61.3 ml LA A4 area: 18.4 cm2 LA dimension(2D): 3.6 cm RA A4 area: 14.9 cm2 Doppler Measurements & Calculations MV E max mj: 46.8 cm/sec Lat Peak E' Mj: 5.9 cm/sec Med Peak E' Mj: 5.0 cm/sec MV A max mj: 69.8 cm/sec E/E' lat: 7.9 E/E' med: 9.3 MV E/A: 0.67 Ao V2 max: 146.7 cm/sec AI max mj: 445.7 cm/sec LV V1 max: 102.7 cm/sec Ao max P.6 mmHg AI max P.5 mmHg LV V1 max P.2 mmHg Ao V2 mean: 109.6 cm/sec AI dec slope: 238.4 cm/sec2 Ao mean P.2 mmHg AI P1/2t: 547.6 msec Ao V2 VTI: 30.1 cm PA V2 max: 110.7 cm/sec TR max mj: 251.7 cm/sec TR max P.3 mmHg ECHO/Echo Complete W/ Contrast Interpretation Summary The estimated ejection fraction is 45 %. There is evidence of diastolic dysfunction. Mild (1+) tricuspid valve insufficiency. Mild (1+) aortic valve insufficiency. Mildly dilated aortic root. Ordering Physician: Roma Fernando Referring Physician: Corwin Bianchi Performed By: Dionne Hernandez, RDCS, RVT
== END ==
PROVIDERS: PCP Family Medicine; Referring Provider Specialist; Visit Provider Specialist
DX: I44.7 Left bundle-branch block, unspecified (principal)
CPT/HCPCS: 93306; Q9957; A4216; C8929; J3490

== ENCOUNTER → 2021-07-17 07:59 | Outpatient (CLI) | payer MEDICARE, OTHER, SELFPAY ==
--- NOTE | 2021-07-17 08:01 | ECHOD_ITS ---
Reason For Study: Decreased EF Procedure This was a limited 2D transthoracic echocardiogram. Limited views were obtained. Exam performed in department. Left Ventricle Normal LV size. Mild segmental systolic dysfunction (see wall motion). The estimated ejection fraction is 40 %. Unable to assess diastolic dysfunction. Infero-Basal: Hypokinetic. Mid-Anterior : Hypokinetic. Mid-Lateral : Hypokinetic. Mid-Posterior: Hypokinetic. Mid-Inferior: Hypokinetic. Mid- inferoseptal : Hypokinetic. Mid-anteroseptal : Hypokinetic. Anna : Akinetic. Right Ventricle Normal RV size. Normal systolic function. Atria Normal left atrium. Normal right atrium. Mitral Valve There is mild mitral annular calcification. Normal mitral valve. Tricuspid Valve Normal tricuspid valve. Aortic Valve Trisinus/trileaflet aortic valve. Mild focal aortic valve calcification. Pulmonic Valve The pulmonic valve is not well visualized. Great Vessels Normal sized aortic root. Pericardium/Pleural No pericardial effusion. MMode/2D Measurements & Calculations LVIDd: 3.8 cm IVSd: 1.1 cm Ao root diam: 3.7 cm LVIDs: 2.3 cm LVPWd: 1.0 cm FS: 40.6 % LVAd ap4: 37.3 cm2 LVAd ap2: 32.0 cm2 SV(MOD-sp4): 71.9 ml LVLd ap4: 9.0 cm LVLd ap2: 8.6 cm EDV(MOD-sp4): 131.5 ml EDV(MOD-sp2): 96.6 ml EDV(sp4-el): 130.7 ml EDV(sp2-el): 101.0 ml LVAs ap4: 23.8 cm2 LVAs ap2: 20.1 cm2 LVLs ap4: 8.3 cm LVLs ap2: 8.0 cm ESV(MOD-sp4): 59.7 ml ESV(MOD-sp2): 44.6 ml ESV(sp4-el): 57.5 ml ESV(sp2-el): 42.9 ml EF(MOD-sp4): 54.7 % EF(MOD-sp2): 53.9 % EF(sp4-el): 56.0 % SV(MOD-sp2): 52.0 ml SV(sp4-el): 73.2 ml LA dimension(2D): 3.6 cm ECHO/Echo, Limited Study Interpretation Summary Limited views were obtained. Mild segmental systolic dysfunction (see wall motion). The estimated ejection fraction is 40 %. There is mild mitral annular calcification. Mild focal aortic valve calcification. Unable to assess diastolic dysfunction. Ordering Physician: Cassi Sprague/Arash Dejesus Referring Physician: Cassi Sprague Performed By: Nery Bobby RDCS
== END ==
PROVIDERS: PCP Family Medicine; Referring Provider Physician Assistant Medical; Visit Provider Physician Assistant Medical
DX: Z98.890 Other specified postprocedural states (principal)
CPT/HCPCS: 93308

== ENCOUNTER → 2021-08-28 07:34 | Outpatient (CLI) | payer MEDICARE, OTHER, SELFPAY ==
[2021-08-28 10:29] LABS: PSA,Total- Diagnostic 0.01 ng/mL (0.0-4.0)
== END ==
PROVIDERS: PCP Family Medicine; Referring Provider Urology; Visit Provider Urology
DX: C61 Malignant neoplasm of prostate (principal)
CPT/HCPCS: 36415; 84153

== ENCOUNTER → 2021-10-03 18:51 | Outpatient (CLI) | payer MEDICARE, OTHER, SELFPAY ==
--- NOTE | 2021-10-03 18:54 | CT_ITS ---
EXAM: CT MAXILLOFACIAL SINUSES WITHOUT INTRAVENOUS CONTRAST CLINICAL INDICATION: LEFT SINUS MASS TECHNIQUE: Helically acquired images were obtained of the maxillofacial sinuses without intravenous contrast. CTDI vol (mGy): 33 DLP vol (mGy-cm): [address] exam was performed using one or more of the following dose reduction techniques: automated exposure control, adjustment of the mA and/or kV according to patient size, and/or use of iterative reconstruction technique. This report was created using [employer] report [employer] technology. COMPARISON: None. FINDINGS: MAXILLARY SINUSES: Clear. Ostiomeatal complexes are normally formed. SPHENOID SINUSES: Clear. FRONTAL SINUSES: Clear. ETHMOID AIR CELLS: Expansile soft tissue mass involving the left ethmoid air cells. Masslike expansile process centered at the left ethmoid air cells. NASAL CAVITY/SEPTUM: Nasal septum is midline. Nasal turbinates are unremarkable. MASTOID AIR CELLS: Mastoid air cells and middle ears are clear. BONES/JOINTS: No acute or healing fracture or malalignment. No unusual lytic or sclerotic lesions of bone. ORBITS: Unremarkable. DENTAL: Unremarkable as visualized. No periodontal osseous erosion. OTHER FINDINGS: Scattered paranasal sinus mucosal thickening of the right. Opacified left paranasal sinuses. Airways are patent. Mild diffuse parenchymal atrophy. Atherosclerotic calcifications involving the vertebrobasilar arteries and carotid siphons. CT/Sinus/Facial Bone IMPRESSION: Expansile soft tissue mass centered at the left ethmoidal air cell region. Suggest ENT referral for further investigation. Electronically Signed: Bahman Barnes MD at 3:27 EST Tel , Service support ,
== END ==
PROVIDERS: PCP Family Medicine; Referring Provider Otolaryngology; Visit Provider Otolaryngology
DX: J32.9 Chronic sinusitis, unspecified (principal)
CPT/HCPCS: 70486

== ENCOUNTER → 2021-10-09 | Outpatient (CLI) | payer MEDICARE, OTHER, SELFPAY ==
--- NOTE | 2021-10-09 | IMM_PTH ---
PATIENT: AUTUMN WEN LOC: [facility] U#:[id number] AGE/SX: 76/M ROOM: RE10/09/[address]: Dr. Lauri López MD : 1945 BED: DIS: 10/09/2021 SPEC #: [id number] RECD: 10/11/21 14:42 STATUS: VINNY REQ #: [id number] RENETTA: 10/09/21 00:[address]: Lauri López DEPT: IMMUNOHISTOCHEMISTRY RECD BY: Tiana Huertas ENTERED: 10/11/21 14:45 SP TYPE: IMMUNO OTHR DR: Dr. Corwin Bianchi, DO Tissues: Nose, NOS Procedures: NAPSIN A (add) CK14 (add) CK20 (add) CK7 (add) CK8 (add) KI-67 (add) P53 (add) TTF1 (add) Vimentin (add) FACTOR VIII (add) Pankeratin (initial) GATA3 (add) P40 (add) CDX2 (add) PSAP (add) PHYSICIAN & [address] [address] SPECIMEN INFORMATION: Tissue Source: Left sinonasal mass Clinical Info: Left sinonasal mass Specimen Number: [id number] CPT code: 20481, 04984 x14 METHODOLOGY: Deparaffinized sections of prefer/formalin-fixed tissue or PAP/DQ stained slides are incubated with monoclonal/polyclonal antibodies/oligonucleotide probes. Localization is made via biotin free immunoperoxidase method. Appropriate controls are performed and reacted as expected. Results on target cell population are indicated in the following table: RESULTS: ANTIBODY / CLONE RESULT AE1-3 (AE1/AE3/PCK26) positive CK7 (OV-TL12/30) negative CK8 (24lbnuU14) positive CK20 (KS20.8) positive, focal CDX2 ([id number]) positive GATA3 (L50-823) negative Vimentin (V9) negative Factor VIII (R Ag) negative TTF-1 (8G7G3/1) negative Napsin A (Rabbit Polyclonal) positive PSAP (PASE/4LJ) negative CK14 (LL002) negative P40 (BC28) negative P53 (DO-7) positive, >90% Ki-67 (30-9) positive, >90% These tests were developed and their performance characteristics determined by [facility]. They may not have been cleared or approved by the U.S. Food and Drug Administration. The FDA has determined that such clearance or approval is not necessary. The above immunohistochemical/dualISH markers are ordered and reviewed by the Pathologist. INTERPRETATION: Left sinonasal mass, biopsy: Adenocarcinoma. AM:osman 10/12/2021 The case is sent to [facility] for expert opinion, reviewed by Dr. 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 The complete report is viewable in the patient's EMR. Case has been reviewed in consultation with Dr. Sterling who concurs with the above diagnosis. IDC:[id number]
--- NOTE | 2021-10-09 | NASAL_PTH ---
PATIENT: AUTUMN WEN LOC: [facility] U#:[id number] AGE/SX: 76/M ROOM: RE10/09/[address]: Dr. Lauri López MD : 1945 BED: DIS: 10/09/2021 SPEC #: [id number] RECD: 10/09/21 17:00 STATUS: VINNY ZHOU #: [id number] RENETTA: 10/09/21 00:[address]: Lauri López DEPT: SURGICAL PATHOLOGY RECD BY: Aminah Huitron ENTERED: 10/10/21 08:37 SP TYPE: NASAL SPEC OTHR DR: Dr. Corwin Bianchi, Tissues: NASAL POLYP Procedures: Surgery Specimen Level IV HEADER OPERATION: Biopsy PRE-OP DIAGNOSIS: Left sinonasal mass TISSUE SUBMITTED: Left sinonasal mass MICROSCOPIC DIAGNOSIS Left sinonasal mass, biopsy: Adenocarcinoma. See comment. AM:osman 10/18/2021 COMMENT Immunohistochemistry ([id number]) supports the above diagnosis. The specimen is sent to [facility] for expert opinion, reviewed by Dr. 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 This case is discussed with Dr. Montalvo again on 10/18/2021. The complete report is viewable in the patient's EMR. This case is discussed with Dr. López on 10/16/2021. MICROSCOPIC DESCRIPTION Slides are reviewed. GROSS DESCRIPTION Received in fixative is one container labeled with the patient's name and designated sinonasal mass. The specimen consists of two irregular fragments of red-tobin soft tissue that in aggregate measure 1 x 0.7 x 0.2 cm. The specimen is totally submitted in one cassette. / AM:osman 10/10/21 TC:0 CPT: 32395 ADDENDUM ADDENDUM ADDENDUM ADDENDUM ADDENDUM ADDENDUM ADDENDUM ADDENDUM ADDENDUM ADDENDUM 12/13/2021 10:52 ADDENDUM 12/13/2021 10:52 ADDENDUM 12/13/2021 10:52 ADDENDUM 12/13/2021 10:52 ADDENDUM 12/13/2021 10:52 This addendum is added to incorporate an outside pathology consultation report. The case was examined at [facility] (#[id number]) and the following diagnosis was rendered. Left sinonasal mass, biopsy: Adenocarcinoma, intestinal type. Please see complete above mentioned consultation report in EMR
== END | disposition home or self-care (01) ==
LOC: LABSPEC 10-10 10:25
PROVIDERS: PCP Family Medicine; Referring Provider Otolaryngology; Visit Provider Otolaryngology
DX: R22.0 Localized swelling, mass and lump, head (principal)
CPT/HCPCS: 88305; 88341; 88342

== ENCOUNTER → 2022-02-26 | Outpatient (CLI) | payer MEDICARE, OTHER, SELFPAY ==
[2022-02-26 09:59] LABS: PSA,Total- Diagnostic 0.02 ng/mL (0.0-4.0)
== END | disposition home or self-care (01) ==
LOC: LAB 08:17
PROVIDERS: PCP Family Medicine; Referring Provider Urology; Visit Provider Urology
DX: C61 Malignant neoplasm of prostate (principal)
CPT/HCPCS: 36415; 84153

== ENCOUNTER → 2022-08-01 | Outpatient (CLI) | payer MEDICARE, OTHER, SELFPAY ==
--- NOTE | 2022-08-01 14:56 | ECHOD_ITS ---
Reason For Study: CMP Procedure This was a 2D Doppler, Color Flow transthoracic echocardiogram. The exam was of adequate technical quality. Exam performed in department. Left Ventricle Mild segmental systolic dysfunction (see wall motion). The estimated ejection fraction is 50 %. Stage 1 diastolic dysfunction. Infero-Basal: Hypokinetic. Mid-Anterior : Hypokinetic. Mid-Lateral : Hypokinetic. Mid-Posterior: Hypokinetic. Mid-Inferior: Hypokinetic. Mid-inferoseptal : Hypokinetic. Mid-anteroseptal : Hypokinetic. [place] : Hypokinetic. Right Ventricle Normal RV size. Normal systolic function. Atria Normal left atrium. Normal right atrium. No doppler evidence for ASD. Mitral Valve There is no mitral annular calcification. Normal mitral valve. Trivial mitral valve insufficiency. Tricuspid Valve Normal tricuspid valve. Mild to moderate (1-2+) tricuspid valve insufficiency. Right ventricular systolic pressure estimated to be 31 mmHg. Aortic Valve Trisinus/trileaflet aortic valve. Normal aortic valve. Trivial aortic valve insufficiency. Pulmonic Valve The pulmonic valve is not well visualized. Trivial pulmonic valve insufficiency. Great Vessels Mildly dilated aortic root. Pericardium/Pleural No pericardial effusion. MMode/2D Measurements & Calculations RVDd: 4.1 cm Ao root diam: 3.9 cm LAV(MOD-sp4): 33.3 ml LVAd ap4: 28.1 cm2 SV(MOD-sp4): 40.3 ml SV(sp4-el): 45.4 ml LVLd ap4: 7.5 cm EDV(MOD-sp4): 83.1 ml EDV(sp4-el): 89.2 ml LVAs ap4: 18.5 cm2 LVLs ap4: 6.6 cm ESV(MOD-sp4): 42.8 ml ESV(sp4-el): 43.8 ml EF(MOD-sp4): 48.5 % EF(sp4-el): 50.9 % LA A4 area: 15.8 cm2 RA A4 area: 21.1 cm2 Time Measurements MV dec time: 0.26 sec Doppler Measurements & Calculations MV E max mj: 59.2 cm/sec Lat Peak E' Mj: 6.9 cm/sec Med Peak E' Mj: 7.8 cm/sec MV A max mj: 73.1 cm/sec E/E' lat: 8.5 E/E' med: 7.6 MV E/A: 0.81 MV V2 max: 73.4 cm/sec Ao V2 max: 155.8 cm/sec MV max P.2 mmHg MV dec slope: 231.4 cm/sec2 Ao max P.7 mmHg MV V2 mean: 50.6 cm/sec Ao V2 mean: 108.1 cm/sec MV mean P.1 mmHg Ao mean P.4 mmHg MV V2 VTI: 23.7 cm Ao V2 VTI: 31.4 cm LV V1 max: 126.5 cm/sec PA V2 max: 93.4 cm/sec TR max mj: 237.8 cm/sec LV V1 max P.4 mmHg PA V2 mean: 60.5 cm/sec TR max P.6 mmHg LV V1 mean P.2 mmHg LV V1 mean: 81.6 cm/sec LV V1 VTI: 28.0 cm ECHO/Echo Complete Interpretation Summary Mild segmental systolic dysfunction (see wall motion). The estimated ejection fraction is 50 %. Trivial mitral valve insufficiency. Mild to moderate (1-2+) tricuspid valve insufficiency. Trivial aortic valve insufficiency. Trivial pulmonic valve insufficiency. Mildly dilated aortic root. Right ventricular systolic pressure estimated to be 31 mmHg. Stage 1 diastolic dysfunction. Ordering Physician: Arash Dejesus Referring Physician: Arash Dejesus Performed By: Angelique Reed RCS
== END | disposition home or self-care (01) ==
LOC: CVS 14:55
PROVIDERS: PCP Family Medicine; Referring Provider Internal Medicine Cardiovascular Disease; Visit Provider Internal Medicine Cardiovascular Disease
DX: I51.9 Heart disease, unspecified (principal)
CPT/HCPCS: 93306

== ENCOUNTER 2022-09-10 09:26 | Outpatient (CLI) | payer MEDICARE, OTHER, SELFPAY ==
[2022-09-10 10:40] LABS: PSA,Total - Annual Screen 0.04 ng/mL (0.00-4.00)
== END 2022-09-10 23:59 | disposition home or self-care (01) ==
PROVIDERS: PCP Family Medicine; Visit Provider Urology
DX: C61 Malignant neoplasm of prostate (principal)
CPT/HCPCS: 36415; 84153; G0103

== ENCOUNTER 2022-10-05 14:56 | Inpatient (IN) | payer MEDICARE, OTHER, SELFPAY ==
[2022-10-05] VITALS (7 sets, daily range): BP systolic 116–129; BP diastolic 70–76; PULSE 89–97; RESP 16–28; TEMP 36.6–37.6; O2SAT 89–98; BMI 22.3
--- NOTE | 2022-10-05 15:17 | EKG12_ITS ---
Test Reason : Blood Pressure : / mmHG Vent. Rate : 101 BPM Atrial Rate : 101 BPM P-R Int : 150 ms QRS Dur : 120 ms QT Int : 360 ms P-R-T Axes : 030 -03 132 degrees QTc Int : 466 ms Sinus tachycardia with Premature atrial complexes Left ventricular hypertrophy with QRS widening and repolarization abnormality ( Jasper product ) Anteroseptal infarct , age undetermined Abnormal ECG Confirmed by LOUIS GARCIA, CASEY ([id number]), graphics editor CORAZON DAY ([id number]) on 10/08/2022 1:02:26 PM Referred By: KAUSHIK Confirmed By:CASEY MYERS MD
--- NOTE | 2022-10-05 16:05 | RAD_ITS ---
STUDY: X-RAY CHEST REASON FOR EXAM: Male, 77 years old. sob TECHNIQUE: Single frontal view of the chest. COMPARISON: None. FINDINGS: Mild bilateral interstitial infiltrates. There is no demonstrated pleural abnormality. Normal size heart. Normal mediastinum and jas. Normal visualized pulmonary arteries. Normal visualized aortic arch and descending thoracic aorta. Normal visualized thoracic spine. There is degenerative osteoarthritis of the bilateral shoulders. There is no demonstrated abnormality of the visualized soft tissue structures of the upper abdomen. RAD/Chest 1 View (Portable) IMPRESSION: Mild bilateral interstitial infiltrates, age indeterminate. Electronically Signed: Christopher Bailey MD at 16:19 EST ,
[2022-10-05 17:46] LABS: Absolute Lymphocyte Count 0.51 X10^3/uL (0.83-4.51); Absolute Neutrophil Count 18.8 X10^3/uL (2.0-7.7); Basophil# 0.02 X10^3/uL; Basophil% 0.1 % (0-1); Lymphocyte # 0.51 X10^3/ul (0.83-4.51); Lymphocyte % 2.4 % (19-41); Mean Corp Hgb Conc 32.6 g/dL (32-36); Mean Corpuscular Hgb 29.5 pg (27.0-32.0); Mean Corpuscular Volume 90.5 fL (80-94); Mean Platelet Vol. 11.2 fl (6.2-12.0); Monocyte# 1.37 X10^3/uL; Monocyte% 6.6 % (0-10); NRBC Flagged by Analyzer 0.1 % (0-5); Neutrophil # 18.82 X10^3/uL (2.7-7.7); Neutrophil % 90.1 % (47-70); POSITIVE DIFFERENTIAL YES; Platelet Count 399 K/mm3 (150-450); RBC Distribution Width CV 14.3 % (11.6-14.6); RBC Distribution Width SD 47.3 fl (35.1-43.9); Red Blood Count 4.75 M/mm3 (4.6-6.2); White Blood Count 20.9 K/mm3 (4.4-11.0)
--- NOTE | 2022-10-05 17:51 | EDS_ITS ---
HPI History of Present Illness Chief Complaint: Shortness of Breath Narrative Narrative: 77-year-old male presenting with shortness of breath. He states he has been coughing and feeling unwell for about 2 weeks. He states he has not had a fever that he knows of because he does not have a thermometer. He states he initially felt feverish with body aches. He denies nausea or vomiting. He states he does not have any chest pain. He was seen yesterday to have cataract surgery was to ld his oxygen was too low. He will need follow-up with his PCP he was sent to the ER for evaluation. Patient has no history of DVT/PE. He states he does not have any cardiac history PE Risk Factors: Negative for Cancer, OCP + Smoking + > 35, Prior DVT or PE, Recent immobilization or Recent surgery [facility] Medical History (Updated 10/05/22 @ 22:15 by Carmelita Saha) Decreased left ventricular function Dilated aortic root Family history of malignant neoplasm of prostate GERD (gastroesophageal reflux disease) Hiatal hernia Hyperlipidemia Preop cardiovascular exam Home Medications carvedilol 3.125 mg tablet 3.125 mg PO BID #180 tabs 09/04/22 [Rx Last Taken 10/05/22] Multi Vitamin Pack 1 packet PO/SL DAILY SUPPLEMENT 10/05/22 [History Last Taken 1 Week Ago ~09/28/22] ascorbic acid (vitamin C) 500 mg tablet 500 mg PO DAILY SUPPLEMENT 10/05/22 [History Last Taken 10/05/22] cholecalciferol (vitamin D3) 25 mcg (1,000 unit) tablet 25 mcg PO DAILY SUPPLEMENT 10/05/22 [History Last Taken 10/04/22] pantoprazole 40 mg tablet,delayed release 40 mg PO DAILY GERD 10/05/22 [History Last Taken 10/03/22] Allergy/AdvReac Type Severity Reaction Status Date / Time No Known Allergies Allergy Verified 10/05/22 15:01 Family History Mother Alzheimer's disease Diabetes Parkinson's disease Father Parkinson's disease Surgical History History of facial surgery History of left heart catheterization (06/12/13) History of prostate biopsy History of prostatectomy History of repair of hiatal hernia Social History Smoking Status: Never smoker alcohol intake: never substance use type: does not use caffeine: Yes Type: coffee Number of servings: 1 EXAM Physical Exam Const Vital Signs: 10/05/22 15:01 10/05/22 17:11 10/05/22 17:11 Temperature 97.8 F Temperature Source Temporal Pulse Rate 97 Respiratory Rate 20 H Respiratory Effort Blood Pressure 120/76 Blood Pressure Mean 90 Pulse Ox 91 90 90 Oxygen Delivery Method Room Air Room Air Room Air Oxygen Flow Rate (L/min) 10/05/22 17:12 10/05/22 19:36 10/05/22 19:36 Temperature 99.7 F H Temperature Source Oral Pulse Rate 90 Respiratory Rate 28 H Respiratory Effort Short of Breath Blood Pressure 129/76 H Blood Pressure Mean 93 Pulse Ox 89 93 Oxygen Delivery Method Room Air Room Air Nasal Cannula Oxygen Flow Rate (L/min) 2 10/05/22 21:13 Temperature 99.7 F H Temperature Source Temporal Pulse Rate 89 Respiratory Rate 22 H Respiratory Effort Blood Pressure 129/71 H Blood Pressure Mean 90 Pulse Ox 98 Oxygen Delivery Method Nasal Cannula Oxygen Flow Rate (L/min) 2 MDM MDM MDM Narrative Medical decision making narrative: Patient presented with shortness of breath. His pulse ox is 90% on room air just sitting in the bed. He was placed on 2 L via nasal cannula and his pulse ox is improved to 98. Blood work was obtained and his CBC shows a leukocytosis of 20.9. Hemoglobin hematocrit are stable. Platelets are normal at 399. Renal function electrolytes within normal limits. High-sensitivity troponin is 21. On my interpreted EKG sinus rhythm with a ventricular of 101 bpm with evidence of LVH. There are PACs. Chest x-ray on my interpretation shows bilateral infiltrates. BNP slightly elevated at 111.5. D-dimer today was elevated at over 2. He had a CTA which did not show any PEs or dissection. Does show bilateral infiltrates. Given that the patient is hypoxic and symptomatic I recommended admission. Discussed with the hospitalist. Impression: 1. Dyspnea 2. Hypoxia 3. Leukocytosis 4. Bilateral pneumonia Lab Data Labs: Laboratory Results - last 24 hr 10/05/22 10/05/22 10/05/22 16:40 16:40 16:40 WBC 20.9 H RBC 4.75 Hgb 14.0 Hct 43.0 MCV 90.5 MCH 29.5 MCHC 32.6 RDW Std Deviation 47.3 H RDW Coeff of Cynthia 14.3 Plt Count 399 MPV 11.2 Immature Gran % (Auto) 0.800 Neut % (Auto) 90.1 H Lymph % (Auto) 2.4 L [place] % (Auto) 6.6 Eos % (Auto) 0.0 Baso % (Auto) 0.1 Absolute Neuts (auto) 18.8 H Absolute Lymphs (auto) 0.51 L Nucleated RBC % 0.1 Differential Comment SCANNED D-Dimer Quant (PE/DVT) Sodium 135 L Potassium 4.0 Chloride 102 Carbon Dioxide 27.0 Anion Gap 6 BUN 24 H Creatinine 0.63 L Estim Creat Clear Calc 53.23 Est GFR (MDRD) Af Amer 159 Est GFR (MDRD) Non-Af 131 BUN/Creatinine Ratio 37.9 H Glucose 128 H Calcium 8.9 Troponin I High Sens 21 B-Natriuretic Peptide 10/05/22 10/05/22 16:40 17:30 WBC RBC Hgb Hct MCV MCH MCHC RDW Std Deviation RDW Coeff of Cynthia Plt Count MPV Immature Gran % (Auto) Neut % (Auto) Lymph % (Auto) [place] % (Auto) Eos % (Auto) Baso % (Auto) Absolute Neuts (auto) Absolute Lymphs (auto) Nucleated RBC % Differential Comment D-Dimer Quant (PE/DVT) 2.04 H* Sodium Potassium Chloride Carbon Dioxide Anion Gap BUN Creatinine Estim Creat Clear Calc Est GFR (MDRD) Af Amer Est GFR (MDRD) Non-Af BUN/Creatinine Ratio Glucose Calcium Troponin I High Sens B-Natriuretic Peptide 111.5 H Radiography Diagnostic Testing: Clinical Impression(s) from Imaging Studies Chest X-Ray 10/05/22 16:05 IMPRESSION: Mild bilateral interstitial infiltrates, age indeterminate. Electronically Signed: Christopher Bailey MD at 16:19 EST Reading Location ID and State: [facility] / MD , Service support , Chest CTA 10/05/22 18:35 IMPRESSION: Bibasilar consolidation. Coronary artery disease. Cholelithiasis. Multiple compression fractures age-indeterminate. Electronically Signed: Christopher Bailey MD at 20:38 EST , Discharge Plan Disposition Disposition: Acute Care Hospital [facility] Discharge Date/Time: 10/05/22 21:58
[2022-10-05 17:57] LABS: Anion Gap 6 (5-15); BUN 24 mg/dL (7-18); BUN/Creat Ratio 37.9 RATIO (10-20); Calcium,Total 8.9 mg/dL (8.5-10.1); Chloride 102 mmol/L (98-107); Creatinine, Serum 0.63 mg/dL (0.70-1.30); EST Glomerular Filtration Rate 131 mL/min (>60); Est Glom Filt Rate - Afr Amer 159 mL/min (>60); Estimated Creatinine Clearance 53.23 ml/min; Glucose 128 mg/dL (74-106); Sodium Level 135 mmol/L (136-145)
[2022-10-05 18:02] LABS: BNP,B-Type NATRIURETIC PEPTIDE 111.5 pg/mL (0-100)
[2022-10-05 18:05] LABS: Differential Indicated SCAN CRITERIA MET
[2022-10-05 18:30] LABS: Troponin-I HS 21 pg/mL (3.0-78.0)
[2022-10-05 18:34] LABS: D-Dimer Quantitative (DVT/PE) 2.04 FEU/ug/m (0.27-0.49)
--- NOTE | 2022-10-05 18:35 | CT_ITS ---
STUDY: CTA CHEST REASON FOR EXAM: Male, 77 years old. hyoxia RADIATION DOSAGE (If Supplied By Facility): CTDIvol = ( 8.16 ) mGy, DLP = ( 209.19 ) mGycm TECHNIQUE: The examination was performed with the intravenous administration of IV 100mL Isovue-370. Post-processing of the angiographic images was performed, with multiplanar reformation and 3D reconstruction. Individualized dose optimization techniques were used for this CT. COMPARISON: Chest x-ray September 2022 FINDINGS: Normal enhancement of the main pulmonary artery and right and left pulmonary arteries. Normal enhancement of the bilateral peripheral pulmonary arteries. There is no demonstrated pulmonary embolism. Normal thoracic aorta and visualized great vessels. There is no demonstrated aortic dissection. Calcific coronary artery disease. Normal mediastinum. Normal hilar regions. Normal visualized trachea and bronchi. Bibasilar consolidations. Normal pulmonary parenchyma. Normal pleura. Normal chest wall structures. Moderate scoliosis. Multiple mild compression fractures thoracic spine and lumbar spine, age-indeterminate. There is a solitary gallstone. CT/CTA Chest W/WO Contrast IMPRESSION: Bibasilar consolidation. Coronary artery disease. Cholelithiasis. Multiple compression fractures age-indeterminate. Electronically Signed: Christopher Bailey MD at 20:38 EST ,
[2022-10-05 18:37] LABS: Differential Comment SCANNED
[2022-10-05] MEDS: Ceftriaxone 1 GM/50 ML BAG IV (21:21)
[2022-10-05] MEDS: Azithromycin 250 MG Tablet 500 MG PO (21:22)
--- NOTE | 2022-10-05 21:53 | PCM.HP.STD ---
HPI - General General Date of Admission: 10/05/22 Date of Service: 10/05/22 Chief Complaint: Feeling worn out HPI Narrative 77-year-old male with a history of prostate cancer and a hiatal hernia who presented to [facility] 10/05/2022 with about a week of feeling tired and worn out with increased cough and mucus production as well as feeling sore all over. He went in for cataract surgery today and had an O2 in the high 80s and they told him they could not perform surgery and to follow-up with his outpatient physician. However he began to feel worse we presented to the ER. Does have an elevated white count and while sitting still was 90% on room air with significant general weakness and fatigue. Hospitalist consulted for admission. Interviewed with at bedside and he reports he is feeling tired and worn out. Does endorse the cough with mucus production and shortness of breath when lying still and reports he does not move around much at baseline. Is sore all over and has a stuffy nose that is somewhat chronic. Unknown sure if he has been febrile. No other complaints at this time. FORMERLY [facility], [facility]1983 Medical History Decreased left ventricular function Dilated aortic root Family history of malignant neoplasm of prostate Hiatal hernia Hyperlipidemia Preop cardiovascular exam Home Medications carvedilol 3.125 mg tablet 3.125 mg PO BID #180 tabs 09/04/22 [Rx Last Taken 10/05/22] Multi Vitamin Pack 1 packet PO/SL DAILY SUPPLEMENT 10/05/22 [History Last Taken 1 Week Ago ~09/28/22] ascorbic acid (vitamin C) 500 mg tablet 500 mg PO DAILY SUPPLEMENT 10/05/22 [History Last Taken 10/05/22] cholecalciferol (vitamin D3) 25 mcg (1,000 unit) tablet 25 mcg PO DAILY SUPPLEMENT 10/05/22 [History Last Taken 10/04/22] pantoprazole 40 mg tablet,delayed release 40 mg PO DAILY GERD 10/05/22 [History Last Taken 10/03/22] Allergy/AdvReac Type Severity Reaction Status Date / Time No Known Allergies Allergy Verified 10/05/22 15:01 Family History Mother Alzheimer's disease Diabetes Parkinson's disease Father Parkinson's disease Surgical History History of facial surgery History of left heart catheterization (06/12/13) History of prostate biopsy History of prostatectomy History of repair of hiatal hernia Social History Smoking Status: Never smoker alcohol intake: never substance use type: does not use caffeine: Yes Type: coffee Number of servings: 1 ROS Constitutional Constitutional: Denies change in weight Eyes Eyes: Denies change in vision ENT HEENT: Reports nasal congestion; Denies headache(s) or sore throat Cardiovascular Cardiovascular: Denies chest pain or palpitations Respiratory/Chest Respiratory/Chest: Reports cough, productive cough and shortness of breath at rest Gastrointestinal Gastrointestinal: Reports other Details: denies changes in bowel or bladder ; Denies abdominal pain Genitourinary Genitourinary: Reports other Details: denies changes in urination Musculoskeletal Musculoskeletal: Denies joint pain Neurologic Neurologic: Reports other Details: Generalized weakness ; Denies dizziness, focal weakness, headache(s), numbness or tingling Psychiatric Psychiatric: Denies anxiety Hematologic/Lymphatic Hematologic/Lymphatic: Denies easy bleeding Allergic/Immunologic Allergic/Immunologic: Reports other Details: denies rashes Vital Signs Vital Signs Vital Signs: 10/05/22 15:01 10/05/22 17:11 10/05/22 17:11 Temperature 97.8 F Temperature Source Temporal Pulse Rate 97 Respiratory Rate 20 H Respiratory Effort Blood Pressure 120/76 Blood Pressure Mean 90 Pulse Ox 91 90 90 Oxygen Delivery Method Room Air Room Air Room Air Oxygen Flow Rate (L/min) 10/05/22 17:12 10/05/22 19:36 10/05/22 19:36 Temperature 99.7 F H Temperature Source Oral Pulse Rate 90 Respiratory Rate 28 H Respiratory Effort Short of Breath Blood Pressure 129/76 H Blood Pressure Mean 93 Pulse Ox 89 93 Oxygen Delivery Method Room Air Room Air Nasal Cannula Oxygen Flow Rate (L/min) 2 10/05/22 21:13 Temperature 99.7 F H Temperature Source Temporal Pulse Rate 89 Respiratory Rate 22 H Respiratory Effort Blood Pressure 129/71 H Blood Pressure Mean 90 Pulse Ox 98 Oxygen Delivery Method Nasal Cannula Oxygen Flow Rate (L/min) 2 Weight Weight: 58.967 kg Body Mass Index (BMI) 22.3 Physical Exam Const alert Constitutional Narrative: Oriented, appears tired HEENT normocephalic and head/scalp atraumatic Eyes Eyes Narrative: EOM grossly intact, anicteric Neck supple Resp normal respiratory effort Resp Narrative: Diminished at the bases Cardio regular rate and regular rhythm GI soft to palpation, non-tender and non-distended Extremity Extremity Narrative: No edema appreciated Neuro moves all extremities Neuro Narrative: No overt focal deficits appreciated Psych Psych Narrative: Cooperative Results Lab / Micro Data Result Diagrams: 10/05/22 16:40 10/05/22 16:40 Labs: Laboratory Results - last 24 hr 10/05/22 16:40: WBC 20.9 H, RBC 4.75, Hgb 14.0, Hct 43.0, MCV 90.5, MCH 29.5, MCHC 32.6, RDW Std Deviation 47.3 H, RDW Coeff of Cynthia 14.3, Plt Count 399, MPV 11.2, Immature Gran % (Auto) 0.800, Neut % (Auto) 90.1 H, Lymph % (Auto) 2.4 L, [place] % (Auto) 6.6, Eos % (Auto) 0.0, Baso % (Auto) 0.1, Absolute Neuts (auto) 18.8 H, Absolute Lymphs (auto) 0.51 L, Nucleated RBC % 0.1, Differential Comment SCANNED 10/05/22 16:40: Sodium 135 L, Potassium 4.0, Chloride 102, Carbon Dioxide 27.0, Anion Gap 6, BUN 24 H, Creatinine 0.63 L, Estim Creat Clear Calc 53.23, Est GFR (MDRD) Af Amer 159, Est GFR (MDRD) Non-Af 131, BUN/Creatinine Ratio 37.9 H, Glucose 128 H, Calcium 8.9 10/05/22 16:40: Troponin I High Sens 21 10/05/22 16:40: B-Natriuretic Peptide 111.5 H 10/05/22 17:30: D-Dimer Quant (PE/DVT) 2.04 H* Micro: Microbiology 10/05/22 17:00 Nasal Secretion SARS-CoV-2 Antigen (Rapid) - Final Radiology Impression Chest X-Ray 10/05/22 16:05 IMPRESSION: Mild bilateral interstitial infiltrates, age indeterminate. Electronically Signed: Christopher Bailey MD at 16:19 EST , Chest CTA 10/05/22 18:35 IMPRESSION: Bibasilar consolidation. Coronary artery disease. Cholelithiasis. Multiple compression fractures age-indeterminate. Electronically Signed: Christopher Bailey MD at 20:38 EST Reading Location ID and State: [address] [place] [address] , Service support , Assessment & Plan Assessment/Plan (1) CAP (community acquired pneumonia): PLAN: Plan #Shortness of breath secondary to community-acquired pneumonia Has elevated white blood cell count of 20 with a left shift CURB 65 is 2, pt is at moderate risk and given worsening status reasonable for inpatient evaluation and treatment Bilateral pneumonia seen on CTA which was performed in the ER due to D-dimer being elevated Will start on CAP coverage but will also check COVID PCR and respiratory panel Incentive spirometry, Rocephin and azithromycin Urine antigens Albuterol as needed Nebs #GERD Continue pantoprazole #DVT ppx: Marco Michele MD Charges/Coding Visit Charges Inpatient E&M: 37102 Init Hosp L2
[2022-10-05] MEDS: Carvedilol 3.125 MG TABLET PO (23:04)
[2022-10-06] VITALS (9 sets, daily range): BP systolic 108–127; BP diastolic 65–74; PULSE 82–95; RESP 18; TEMP 36.6–37.3; O2SAT 88–93
[2022-10-06 07:20] LABS: Absolute Lymphocyte Count 0.32 X10^3/uL (0.83-4.51); Absolute Neutrophil Count 14.6 X10^3/uL (2.0-7.7); Basophil# 0.02 X10^3/uL; Basophil% 0.1 % (0-1); Eosinophil# 0.01 X10^3/uL; Eosinophils% 0.1 % (0-5); Hematocrit 38.4 % (40-54); Hemoglobin 12.7 g/dL (13.0-16.5); Lymphocyte # 0.32 X10^3/ul (0.83-4.51); Mean Corp Hgb Conc 33.1 g/dL (32-36); Mean Corpuscular Hgb 29.3 pg (27.0-32.0); Mean Corpuscular Volume 88.5 fL (80-94); Mean Platelet Vol. 10.6 fl (6.2-12.0); Monocyte# 1.22 X10^3/uL; Monocyte% 7.5 % (0-10); NRBC Flagged by Analyzer 0 % (0-5); Neutrophil # 14.55 X10^3/uL (2.7-7.7); Neutrophil % 89.6 % (47-70); POSITIVE DIFFERENTIAL YES; Platelet Count 395 K/mm3 (150-450); RBC Distribution Width SD 45.6 fl (35.1-43.9); Red Blood Count 4.34 M/mm3 (4.6-6.2); White Blood Count 16.2 K/mm3 (4.4-11.0)
--- NOTE | 2022-10-06 07:39 | PCM.PN.HOSP ---
Subjective Subjective Patient is a 77-year-old gentleman presenting with shortness of breath imaging studies obtained on admission did not show bibasilar consolidation. Admitted to regular nursing floor for subsequent management Objective Data Objective Data Vital Signs: Vital Signs Temp Pulse Resp BP Pulse Ox O2 Del Method O2 Flow Rate 98.9 F 86 18 122/74 H 93 Nasal Cannula 3 10/06/22 04:52 10/06/22 04:52 10/06/22 04:52 10/06/22 04:52 10/06/22 04:52 10/06/22 05:01 10/06/22 05:01 Oxygen Flow Rate (L/min) 3 Oxygen Delivery Method Nasal Cannula Weight: 52.8 kg Body Mass Index (BMI) 20.0 Intake & Output: Intake and Output for Last 24 Hours 10/04/22 10/05/22 10/06/22 23:59 23:59 23:59 Intake Total 50 / 200 350 / 350 Output Total 200 / 200 Balance 50 / 200 150 / 150 Lab / Micro Data Result Diagrams: 10/06/22 06:35 10/06/22 06:35 Labs: Laboratory Results - last 24 hr 10/05/22 16:40: WBC 20.9 H, RBC 4.75, Hgb 14.0, Hct 43.0, MCV 90.5, MCH 29.5, MCHC 32.6, RDW Std Deviation 47.3 H, RDW Coeff of Cynthia 14.3, Plt Count 399, MPV 11.2, Immature Gran % (Auto) 0.800, Neut % (Auto) 90.1 H, Lymph % (Auto) 2.4 L, [place] % (Auto) 6.6, Eos % (Auto) 0.0, Baso % (Auto) 0.1, Absolute Neuts (auto) 18.8 H, Absolute Lymphs (auto) 0.51 L, Nucleated RBC % 0.1, Differential Comment SCANNED 10/05/22 16:40: Sodium 135 L, Potassium 4.0, Chloride 102, Carbon Dioxide 27.0, Anion Gap 6, BUN 24 H, Creatinine 0.63 L, Estim Creat Clear Calc 53.23, Est GFR (MDRD) Af Amer 159, Est GFR (MDRD) Non-Af 131, BUN/Creatinine Ratio 37.9 H, Glucose 128 H, Calcium 8.9 10/05/22 16:40: Troponin I High Sens 21 10/05/22 16:40: B-Natriuretic Peptide 111.5 H 10/05/22 17:30: D-Dimer Quant (PE/DVT) 2.04 H* 10/05/22 23:20: COVID-19 (TERA) Not Detected Micro: Microbiology 10/05/22 23:20 Mucosa - Nasopharyngeal Respiratory Panel (PCR) - Preliminary Influenza A (Subtype H1) 10/06/22 00:22 Sputum, Expectorated/Coughed Gram Stain - Preliminary 10/06/22 02:03 Urine, Clean Catch Legionella Antigen - Final 10/06/22 02:03 Urine, Clean Catch Streptococcus pneumoniae Antigen (M - Final 10/05/22 17:00 Nasal Secretion SARS-CoV-2 Antigen (Rapid) - Final Radiography Diagnostic Testing: Radiology Impression Chest X-Ray 10/05/22 16:05 IMPRESSION: Mild bilateral interstitial infiltrates, age indeterminate. Electronically Signed: Christopher Bailey MD at 16:19 EST , Chest CTA 10/05/22 18:35 IMPRESSION: Bibasilar consolidation. Coronary artery disease. Cholelithiasis. Multiple compression fractures age-indeterminate. Electronically Signed: Christopher Bailey MD at 20:38 EST , Physical Exam Narrative GENERAL: cooperative HEENT: Atraumatic; normocephalic EYES; Anicteric, Normal Conjunctiva NECK; supple, normal thyroid, RESPIRATORY: Diminished to auscultation CARDIOVASCULAR: Regular S1 S2, GI: soft, normoactive bowel sounds, : No Renal angle tenderness; EXTREMITIES: No edema, no clubbing, MUSCULOSKELETAL: no muscle wasting NEURO: Awake; no lateralizing signs. SKIN: No Rash PSYCH; Flat affect Assessment & Plan Assessment/Plan (1) CAP (community acquired pneumonia): PLAN: Plan Patient is a 77-year-old gentleman presenting with shortness of breath imaging studies obtained on admission did not show bibasilar consolidation. Admitted to regular nursing floor for subsequent management 1. Acute dyspnea secondary to pneumonia ? Viral pneumonia with suspected superimposed bacterial pneumonia. Patient placed on a Tamiflu, Rocephin and Zithromax and placed on oxygen titrated to keep Pulse Ox greater than 90 2. Hypertension - Blood pressure controlled, home medications continued with dose adjustment as needed 3. GERD ? On PPI 4. Hyponatremia ? 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 Elevated D-dimer ? CTA was negative for PE 6. DVT prophylaxis - On enoxaparin Charges/Coding Visit Charges Inpatient E&M: 14847 Subs Hosp L2
[2022-10-06 07:40] LABS: Differential Indicated SCAN CRITERIA MET
[2022-10-06 07:47] LABS: ALB/GLOB Ratio 0.6 RATIO (0.9-2.4); AST(SGOT) 19 U/L (15-37); Alanine Aminotransfer ALT/SGPT 28 U/L (16-61); Albumin, Serum 2.2 g/dL (3.2-5.0); Alkaline Phosphatase 114 U/L (45-117); Anion Gap 8 (5-15); BUN 23 mg/dL (7-18); BUN/Creat Ratio 49.8 RATIO (10-20); Calcium,Total 8.7 mg/dL (8.5-10.1); Chloride 101 mmol/L (98-107); Creatinine, Serum 0.46 mg/dL (0.70-1.30); EST Glomerular Filtration Rate 189 mL/min (>60); Est Glom Filt Rate - Afr Amer 228 mL/min (>60); Estimated Creatinine Clearance 47.67 ml/min; Globulin 3.9 g/dL (2.2-4.2); Glucose 103 mg/dL (74-106); Potassium 3.8 mmol/L (3.5-5.1); Protein, Total 6.1 g/dL (6.4-8.2); Sodium Level 132 mmol/L (136-145)
[2022-10-06] MEDS: Azithromycin 250 MG Tablet 500 MG PO (09:50)
[2022-10-06] MEDS: Enoxaparin 40 MG/0.4 ML Syringe SC (09:50)
[2022-10-06] MEDS: Carvedilol 3.125 MG TABLET PO ×2 (09:50→18:05)
[2022-10-06] MEDS: Pantoprazole Sodium 40 MG Tablet PO (09:50)
[2022-10-06] MEDS: Oseltamivir Phosphate 75 MG Capsule PO ×2 (09:50→21:57)
[2022-10-06 12:25] LABS: Differential Comment SCANNED
--- NOTE | 2022-10-06 15:20 | CASEMGMT ---
DIANE TAFOYA Discharge Planning Assessment: Face to Face with patient for initial transition planning/care coordination assessment. Pt alert, sitting up in chair and agreeable to participating in assessment. DIANE TAFOYA introduced self and role at [facility], Pt voices understanding. Care providers, pharmacy, and demographics verified. PCP: [facility]as Specialists: Anjelica (design eng), Opthamologist at [facility] for cataract surgery (currently on hold due to hypoxia/this admission) Preferred Pharmacy: [facility] Insurance: [employer]aring A/B, Printed Piece Prescription Benefit: No Living Will/HPOA: yes/HPOA Lorene Shaffer (daughter) LNOK: Duyen Living Arrangements: Pt lives with his spouse in a two story home without steps to enter. Pt states he has been independent with ADLs. Has a daughter and son who are able to assist as needed. Transportation: Pt and his both drive. DME: Cane, wheeled walker available but he was not using these prior to admission. Pt does not have home O2 prior to admission. SNF/HHC: no previous SNF or HHC providers Plan: Noted PT recommendations for additional home PT after discharge. Pt plans to return home at discharge and is agreeable to home healthcare. A list of home health providers from [facility] including quality and resource use data and consistent with pt's insurance and geographic area provided. Pt states he will review. Will follow-up with pt on Saturday for pt choice and any additional discharge needs. Tabitha Garcia RN CM
[2022-10-06] MEDS: Ensure Plus High Protein 120 ML LIQUID PO (18:05)
[2022-10-06] MEDS: 0.9% Saline Lock 10 ML Syringe IV (22:01)
[2022-10-07] VITALS (11 sets, daily range): BP systolic 108–141; BP diastolic 64–73; PULSE 80–93; RESP 18–20; TEMP 36.2–37.6; O2SAT 86–94
[2022-10-07] MEDS: Acetaminophen 325 MG Tablet 650 MG PO (04:46)
[2022-10-07 07:23] LABS: Absolute Lymphocyte Count 0.36 X10^3/uL (0.83-4.51); Absolute Neutrophil Count 18.1 X10^3/uL (2.0-7.7); Basophil# 0.01 X10^3/uL; Hematocrit 36.8 % (40-54); Hemoglobin 12.2 g/dL (13.0-16.5); Lymphocyte # 0.36 X10^3/ul (0.83-4.51); Lymphocyte % 1.8 % (19-41); Mean Corp Hgb Conc 33.2 g/dL (32-36); Mean Corpuscular Hgb 29.1 pg (27.0-32.0); Mean Corpuscular Volume 87.8 fL (80-94); Mean Platelet Vol. 10.2 fl (6.2-12.0); Monocyte# 1.41 X10^3/uL; NRBC Flagged by Analyzer 0 % (0-5); Neutrophil # 18.13 X10^3/uL (2.7-7.7); Neutrophil % 90.1 % (47-70); POSITIVE DIFFERENTIAL YES; Platelet Count 452 K/mm3 (150-450); RBC Distribution Width CV 14.1 % (11.6-14.6); RBC Distribution Width SD 45.5 fl (35.1-43.9); Red Blood Count 4.19 M/mm3 (4.6-6.2); White Blood Count 20.1 K/mm3 (4.4-11.0)
--- NOTE | 2022-10-07 07:32 | PCM.PN.HOSP ---
Subjective Subjective Patient seen remains on supplemental oxygen. Still has intermittent productive cough. Objective Data Objective Data Vital Signs: Vital Signs Temp Pulse Resp BP Pulse Ox O2 Del Method O2 Flow Rate 99.6 F H 85 18 121/72 H 91 Nasal Cannula 2 10/07/22 04:40 10/07/22 04:40 10/07/22 04:40 10/07/22 04:40 10/07/22 04:40 10/07/22 04:40 10/07/22 04:40 Oxygen Flow Rate (L/min) 2 Oxygen Delivery Method Nasal Cannula Weight: 52.8 kg Body Mass Index (BMI) 20.0 Intake & Output: Intake and Output for Last 24 Hours 10/05/22 10/06/22 10/07/22 23:59 23:59 23:59 Intake Total 50 / 200 815.75 / 815.75 740 / 740 Output Total 500 / 500 200 / 200 Balance 50 / 200 315.75 / 315.75 540 / 540 Medical Nutrition Assessment Dietitian: Malnutrition Criteria Met Start: 10/06/22 21:14 Freq: Status: Active Protocol: Document 10/06/22 16:25 [facility] (Rec: 10/06/22 21:14 [facility] [id number]) Nutrition Malnutrition Evidence of Malnutrition Exists Yes Malnutrition (moderate): Acute Illness/Injury Evidenced By Suboptimal Energy Intake ( Moderate),Weight Loss (Severe) ,Physical Changes (Mild), Physical Changes (Moderate) Clinical Problem Acute Disease or Injury Related Malnutrition Etiology related to physiological changes causing decreased oral intakes Signs/Symptoms as evidenced by significant weight loss of 12.4% in ~2.5 months, decreased oral intakes < 75% of estimated nutrient needs and mild to moderate muscle and fat wasting (hoahaoism , clavicle, buccal, orbital, etc.). Status Active Problem Recommendation Dietitian Recommendations/Changes Continue with Regular - General diet for liberalization. Order Ensure Plus High Protein 120mL 4x/d w/ medpass to help increase oral intakes. Will reassess oral intakes upon f/u. Lab / Micro Data Result Diagrams: 10/06/22 06:35 10/07/22 06:35 Labs: Laboratory Results - last 24 hr 10/06/22 06:35: WBC 16.2 H, RBC 4.34 L, Hgb 12.7 L, Hct 38.4 L, MCV 88.5, MCH 29.3, MCHC 33.1, RDW Std Deviation 45.6 H, RDW Coeff of Cynthia 14.0, Plt Count 395, MPV 10.6, Immature Gran % (Auto) 0.700, Neut % (Auto) 89.6 H, Lymph % (Auto) 2.0 L, [place] % (Auto) 7.5, Eos % (Auto) 0.1, Baso % (Auto) 0.1, Absolute Neuts (auto) 14.6 H, Absolute Lymphs (auto) 0.32 L, Nucleated RBC % 0, Differential Comment SCANNED 10/06/22 06:35: Sodium 132 L, Potassium 3.8, Chloride 101, Carbon Dioxide 23.0, Anion Gap 8, BUN 23 H, Creatinine 0.46 L, Estim Creat Clear Calc 47.67, Est GFR (MDRD) Af Amer 228, Est GFR (MDRD) Non-Af 189, BUN/Creatinine Ratio 49.8 H, Glucose 103, Calcium 8.7, Total Bilirubin 0.80, AST 19, ALT 28, Alkaline Phosphatase 114, Total Protein 6.1 L, Albumin 2.2 L, Globulin 3.9, Albumin/Globulin Ratio 0.6 L Micro: Microbiology 10/06/22 00:22 Sputum, Expectorated/Coughed Gram Stain - Final 10/05/22 23:20 Mucosa - Nasopharyngeal Respiratory Panel (PCR) - Final Influenza A (Subtype H1) 10/06/22 02:03 Urine, Clean Catch Legionella Antigen - Final 10/06/22 02:03 Urine, Clean Catch Streptococcus pneumoniae Antigen (M - Final 10/05/22 17:00 Nasal Secretion SARS-CoV-2 Antigen (Rapid) - Final Physical Exam Narrative GENERAL: cooperative HEENT: Atraumatic; normocephalic EYES; Anicteric, Normal Conjunctiva NECK; supple, normal thyroid, RESPIRATORY: Diminished to auscultation CARDIOVASCULAR: Regular S1 S2, GI: soft, normoactive bowel sounds, : No Renal angle tenderness; EXTREMITIES: No edema, no clubbing, MUSCULOSKELETAL: no muscle wasting NEURO: Awake; no lateralizing signs. SKIN: No Rash PSYCH; Flat affect Assessment & Plan Assessment/Plan (1) CAP (community acquired pneumonia): PLAN: Plan Patient is a 77-year-old gentleman presenting with shortness of breath imaging studies obtained on admission did not show bibasilar consolidation. Admitted to regular nursing floor for subsequent management 1. Acute dyspnea secondary to pneumonia ? Viral pneumonia with suspected superimposed bacterial pneumonia. Patient placed on a Tamiflu, Rocephin and Zithromax and placed on oxygen titrated to keep Pulse Ox greater than 90 ? 10/07/2022 Patient seen remains on supplemental oxygen. Still has intermittent productive cough. Plan is to assess patient for oxygen needs with ambulation if patient does not require oxygen patient will be discharged home and advised to be kept for 1 additional day 2. Hypertension - Blood pressure controlled, home medications continued with dose adjustment as needed 3. GERD ? On PPI 4. Hyponatremia ? 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 Elevated D-dimer ? CTA was negative for PE 6. DVT prophylaxis - On enoxaparin Charges/Coding Visit Charges Inpatient E&M: 72146 Subs Hosp L2
[2022-10-07 07:44] LABS: Anion Gap 6 (5-15); BUN 22 mg/dL (7-18); Calcium,Total 8.6 mg/dL (8.5-10.1); Chloride 102 mmol/L (98-107); Creatinine, Serum 0.48 mg/dL (0.70-1.30); EST Glomerular Filtration Rate 181 mL/min (>60); Est Glom Filt Rate - Afr Amer 219 mL/min (>60); Estimated Creatinine Clearance 47.67 ml/min; Glucose 112 mg/dL (74-106); Magnesium 2.4 mg/dL (1.6-2.6); Potassium 4.1 mmol/L (3.5-5.1); Sodium Level 132 mmol/L (136-145)
[2022-10-07 08:01] LABS: Differential Indicated SCAN CRITERIA MET
[2022-10-07] MEDS: Pantoprazole Sodium 40 MG Tablet PO (08:38)
[2022-10-07] MEDS: Enoxaparin 40 MG/0.4 ML Syringe SC (08:38)
[2022-10-07] MEDS: Oseltamivir Phosphate 75 MG Capsule PO ×2 (08:38→22:32)
[2022-10-07] MEDS: Carvedilol 3.125 MG TABLET PO ×2 (08:40→18:23)
[2022-10-07] MEDS: Ensure Plus High Protein 120 ML LIQUID PO ×3 (08:43→22:34)
[2022-10-07 09:59] LABS: Differential Comment SCANNED
[2022-10-07] MEDS: Azithromycin 250 MG Tablet 500 MG PO (11:21)
[2022-10-08] VITALS (10 sets, daily range): BP systolic 109–124; BP diastolic 60–77; PULSE 71–85; RESP 18; TEMP 36.4–37.7; O2SAT 84–97
[2022-10-08 06:43] LABS: Absolute Lymphocyte Count 0.32 X10^3/uL (0.83-4.51); Absolute Neutrophil Count 12.6 X10^3/uL (2.0-7.7); Basophil# 0.01 X10^3/uL; Basophil% 0.1 % (0-1); Eosinophil# 0.03 X10^3/uL; Eosinophils% 0.2 % (0-5); Hematocrit 36.9 % (40-54); Hemoglobin 12.7 g/dL (13.0-16.5); Lymphocyte # 0.32 X10^3/ul (0.83-4.51); Lymphocyte % 2.2 % (19-41); Mean Corp Hgb Conc 34.4 g/dL (32-36); Mean Corpuscular Hgb 30.3 pg (27.0-32.0); Mean Corpuscular Volume 88.1 fL (80-94); Mean Platelet Vol. 10.3 fl (6.2-12.0); Monocyte# 1.23 X10^3/uL; Monocyte% 8.6 % (0-10); NRBC Flagged by Analyzer 0 % (0-5); Neutrophil # 12.58 X10^3/uL (2.7-7.7); Neutrophil % 88.3 % (47-70); POSITIVE DIFFERENTIAL YES; Platelet Count 448 K/mm3 (150-450); RBC Distribution Width CV 14.2 % (11.6-14.6); RBC Distribution Width SD 45.6 fl (35.1-43.9); Red Blood Count 4.19 M/mm3 (4.6-6.2); White Blood Count 14.3 K/mm3 (4.4-11.0)
[2022-10-08 06:56] LABS: Anion Gap 7 (5-15); BUN 23 mg/dL (7-18); BUN/Creat Ratio 48.3 RATIO (10-20); Calcium,Total 8.6 mg/dL (8.5-10.1); Chloride 101 mmol/L (98-107); Creatinine, Serum 0.48 mg/dL (0.70-1.30); EST Glomerular Filtration Rate 182 mL/min (>60); Est Glom Filt Rate - Afr Amer 220 mL/min (>60); Estimated Creatinine Clearance 47.67 ml/min; Glucose 103 mg/dL (74-106); Sodium Level 134 mmol/L (136-145)
[2022-10-08 07:21] LABS: Differential Indicated SCAN CRITERIA MET
[2022-10-08] MEDS: Carvedilol 3.125 MG TABLET PO ×2 (08:55→18:02)
[2022-10-08] MEDS: Azithromycin 250 MG Tablet 500 MG PO (08:55)
[2022-10-08] MEDS: Enoxaparin 40 MG/0.4 ML Syringe SC (08:55)
[2022-10-08] MEDS: Oseltamivir Phosphate 75 MG Capsule PO ×2 (08:55→21:50)
[2022-10-08] MEDS: Pantoprazole Sodium 40 MG Tablet PO (08:56)
[2022-10-08] MEDS: Ensure Plus High Protein 120 ML LIQUID PO ×4 (08:56→21:50)
--- NOTE | 2022-10-08 11:01 | PCM.PN.HOSP ---
Subjective Subjective Follow-up on acute hypoxia/acute influenza A/haemophilus influenza pneumonia: Patient was seen and examined. He is currently on 5 L of oxygen. He stated that he feels slightly improved. Denied any fever chills or diarrhea or nausea or vomiting. His urine Legionella and streptococcal antigen are negative. Objective Data Objective Data Vital Signs: Vital Signs Temp Pulse Resp BP Pulse Ox O2 Del Method O2 Flow Rate 98.1 F 77 18 119/72 93 Nasal Cannula 4 10/08/22 06:30 10/08/22 06:30 10/08/22 06:30 10/08/22 06:30 10/08/22 07:40 10/08/22 07:40 10/08/22 07:40 Oxygen Flow Rate (L/min) [At 2 REST with Oxygen] Oxygen Flow Rate (L/min) [ 6 AMBULATING with Oxygen #3] Oxygen Flow Rate (L/min) [ 4 AMBULATING with Oxygen #2] Oxygen Flow Rate (L/min) [ 2 AMBULATING with Oxygen #1] Oxygen Flow Rate (L/min) [ 0 AMBULATING on Room Air] Oxygen Flow Rate (L/min) [At 0 REST on Room Air] Oxygen Flow Rate (L/min) 4 Oxygen Delivery Method Nasal Cannula Weight: 52.8 kg Body Mass Index (BMI) 20.0 Intake & Output: Intake and Output for Last 24 Hours 10/06/22 10/07/22 10/08/22 23:59 23:59 23:59 Intake Total 815.75 / 815.75 1440 / 1440 400 / 400 Output Total 500 / 500 600 / 600 150 / 150 Balance 315.75 / 315.75 840 / 840 250 / 250 Medical Nutrition Assessment Dietitian: Malnutrition Criteria Met Start: 10/06/22 21:14 Freq: Status: Active Protocol: Document 10/06/22 16:25 [facility] (Rec: 10/06/22 21:14 [facility] [id number]) Nutrition Malnutrition Evidence of Malnutrition Exists Yes Malnutrition (moderate): Acute Illness/Injury Evidenced By Suboptimal Energy Intake ( Moderate),Weight Loss (Severe) ,Physical Changes (Mild), Physical Changes (Moderate) Clinical Problem Acute Disease or Injury Related Malnutrition Etiology related to physiological changes causing decreased oral intakes Signs/Symptoms as evidenced by significant weight loss of 12.4% in ~2.5 months, decreased oral intakes < 75% of estimated nutrient needs and mild to moderate muscle and fat wasting (anabaptist , clavicle, buccal, orbital, etc.). Status Active Problem Recommendation Dietitian Recommendations/Changes Continue with Regular - General diet for liberalization. Order Ensure Plus High Protein 120mL 4x/d w/ medpass to help increase oral intakes. Will reassess oral intakes upon f/u. Lab / Micro Data Result Diagrams: 10/08/22 05:52 10/08/22 05:52 Labs: Laboratory Results - last 24 hr 10/08/22 05:52: WBC 14.3 H, RBC 4.19 L, Hgb 12.7 L, Hct 36.9 L, MCV 88.1, MCH 30.3, MCHC 34.4, RDW Std Deviation 45.6 H, RDW Coeff of Cynthia 14.2, Plt Count 448, MPV 10.3, Immature Gran % (Auto) 0.600, Neut % (Auto) 88.3 H, Lymph % (Auto) 2.2 L, [place] % (Auto) 8.6, Eos % (Auto) 0.2, Baso % (Auto) 0.1, Absolute Neuts (auto) 12.6 H, Absolute Lymphs (auto) 0.32 L, Nucleated RBC % 0, Differential Comment COMMENT 10/08/22 05:52: Sodium 134 L, Potassium 4.0, Chloride 101, Carbon Dioxide 26.0, Anion Gap 7, BUN 23 H, Creatinine 0.48 L, Estim Creat Clear Calc 47.67, Est GFR (MDRD) Af Amer 220, Est GFR (MDRD) Non-Af 182, BUN/Creatinine Ratio 48.3 H, Glucose 103, Calcium 8.6 Micro: Microbiology 10/06/22 00:22 Sputum, Expectorated/Coughed Gram Stain - Final 10/06/22 00:22 Sputum, Expectorated/Coughed Respiratory Culture - Final Haemophilus influenzae 10/05/22 23:20 Mucosa - Nasopharyngeal Respiratory Panel (PCR) - Final Influenza A (Subtype H1) 10/06/22 02:03 Urine, Clean Catch Legionella Antigen - Final 10/06/22 02:03 Urine, Clean Catch Streptococcus pneumoniae Antigen (M - Final 10/05/22 17:00 Nasal Secretion SARS-CoV-2 Antigen (Rapid) - Final Physical Exam Narrative Physical exam: General: Alert, Oriented x3, Cooperative, appears frail, on 5 L oxygen HEENT: Atraumatic Oral: Moist Mucosa Neck: Supple Lungs: Diminished to auscultation Cardiovascular: HS I+II, regular, no murmurs Abdomen: Bowel Sounds Present, Soft, Non Tender Extremities: No edema Skin: No rashes, No breakdown Neurological: Grossly intact Psych/Mental Status: Appropriate Assessment & Plan Assessment/Plan (1) CAP (community acquired pneumonia): PLAN: Plan 1. Acute hypoxia secondary to haemophilus influenzae/influenza A Patient is currently on 5 L of oxygen, continue to encourage use of incentive spirometer Wean off for SPO2 more than 94% 2. Acute Haemophilus influenzae and influenza A pneumonia Urine Legionella and streptococcal antigen negative Continue on IV ceftriaxone and azithromycin as well as Tamiflu 3. Hypertension, controlled, on continue with Coreg 4. GERD, continue PPI 5. Chronic hyponatremia, likely secondary to SIADH, sodium is 134, continue to treat 6. Malnutrition, severe protein calorie, nutrition consulted, continue supplements 7. DVT prophylaxis?Lovenox subcu Charges/Coding Visit Charges Inpatient E&M: 94408 Subs Hosp L2
[2022-10-08 15:26] LABS: Hematocrit 37.5 % (40-54); Hemoglobin 12.4 g/dL (13.0-16.5)
--- NOTE | 2022-10-08 18:11 | CASEMGMT ---
DIANE TAFOYA NOTE: DIANE CM to room. Introduced self and role. Discussed discharge planning. Pt states has considered HHC. Discussed MCR criteria for being homebound. Pt states he is not homebound and voices understanding that insurance would not cover HHC. He declines OP therapy. Discussed possible need of O2 @ discharge and given list of local DME co's and made aware [facility] is affiliated /[facility] [place]. He chooses [employer]. Discussed home O2 process. He and family voice understanding. They deny having other discharge planning needs/concerns. Angélica LEZAMA RN CM
[2022-10-08] MEDS: 0.9% Saline Lock 10 ML Syringe IV (21:50)
[2022-10-09] VITALS (11 sets, daily range): BP systolic 104–124; BP diastolic 65–79; PULSE 69–91; RESP 16–18; TEMP 36.4–36.8; O2SAT 85–96
[2022-10-09 06:31] LABS: Absolute Neutrophil Count 10.1 X10^3/uL (2.0-7.7); Basophil# 0.02 X10^3/uL; Basophil% 0.2 % (0-1); Eosinophil# 0.08 X10^3/uL; Eosinophils% 0.7 % (0-5); Hematocrit 36.1 % (40-54); Hemoglobin 12.1 g/dL (13.0-16.5); Lymphocyte % 3.4 % (19-41); Mean Corp Hgb Conc 33.5 g/dL (32-36); Mean Corpuscular Hgb 29.7 pg (27.0-32.0); Mean Corpuscular Volume 88.7 fL (80-94); Mean Platelet Vol. 10.1 fl (6.2-12.0); Monocyte# 0.92 X10^3/uL; Monocyte% 7.9 % (0-10); NRBC Flagged by Analyzer 0 % (0-5); Neutrophil # 10.11 X10^3/uL (2.7-7.7); POSITIVE DIFFERENTIAL YES; Platelet Count 466 K/mm3 (150-450); RBC Distribution Width CV 14.3 % (11.6-14.6); RBC Distribution Width SD 46.1 fl (35.1-43.9); Red Blood Count 4.07 M/mm3 (4.6-6.2); White Blood Count 11.6 K/mm3 (4.4-11.0)
[2022-10-09 06:40] LABS: Differential Indicated SCAN CRITERIA MET
[2022-10-09 06:56] LABS: Anion Gap 5 (5-15); BUN 25 mg/dL (7-18); BUN/Creat Ratio 52.9 RATIO (10-20); Calcium,Total 8.4 mg/dL (8.5-10.1); Chloride 102 mmol/L (98-107); Creatinine, Serum 0.47 mg/dL (0.70-1.30); EST Glomerular Filtration Rate 184 mL/min (>60); Est Glom Filt Rate - Afr Amer 222 mL/min (>60); Estimated Creatinine Clearance 47.67 ml/min; Glucose 108 mg/dL (74-106); Potassium 3.9 mmol/L (3.5-5.1); Sodium Level 134 mmol/L (136-145)
[2022-10-09 06:57] LABS: Differential Comment SCANNED
[2022-10-09] MEDS: Azithromycin 250 MG Tablet 500 MG PO (07:34)
[2022-10-09] MEDS: Ensure Plus High Protein 120 ML LIQUID PO ×3 (07:34→17:37)
[2022-10-09] MEDS: Pantoprazole Sodium 40 MG Tablet PO (07:34)
[2022-10-09] MEDS: Oseltamivir Phosphate 75 MG Capsule PO ×2 (07:34→21:28)
[2022-10-09] MEDS: Enoxaparin 40 MG/0.4 ML Syringe SC (07:34)
[2022-10-09] MEDS: Carvedilol 3.125 MG TABLET PO ×2 (07:34→17:37)
--- NOTE | 2022-10-09 10:44 | PCM.PN.HOSP ---
Subjective Subjective Follow-up on acute hypoxia/acute influenza A/haemophilus influenza pneumonia: Patient was seen and examined.? Patient feels fairly improved. He is currently on 4 L of oxygen. Denies any fever or chills. Objective Data Objective Data Vital Signs: Vital Signs Temp Pulse Resp BP Pulse Ox O2 Del Method O2 Flow Rate 98 F 79 18 124/73 H 93 Nasal Cannula 3 10/09/22 09:01 10/09/22 09:01 10/09/22 09:01 10/09/22 09:01 10/09/22 09:23 10/09/22 09:23 10/09/22 09:23 Oxygen Flow Rate (L/min) [At 2 REST with Oxygen] Oxygen Flow Rate (L/min) [ 6 AMBULATING with Oxygen #3] Oxygen Flow Rate (L/min) [ 4 AMBULATING with Oxygen #2] Oxygen Flow Rate (L/min) [ 5 AMBULATING with Oxygen #1] Oxygen Flow Rate (L/min) [ 0 AMBULATING on Room Air] Oxygen Flow Rate (L/min) [At 0 REST on Room Air] Oxygen Flow Rate (L/min) 3 Oxygen Delivery Method Nasal Cannula Weight: 52.8 kg Body Mass Index (BMI) 20.0 Intake & Output: Intake and Output for Last 24 Hours 10/07/22 10/08/22 10/09/22 23:59 23:59 23:59 Intake Total 1440 / 1440 648.5 / 648.5 Output Total 600 / 600 150 / 150 200 / 200 Balance 840 / 840 498.5 / 498.5 -200 / -200 Medical Nutrition Assessment Dietitian: Malnutrition Criteria Met Start: 10/06/22 21:14 Freq: Status: Active Protocol: Document 10/06/22 16:25 [facility] (Rec: 10/06/22 21:14 [facility] [id number]) Nutrition Malnutrition Evidence of Malnutrition Exists Yes Malnutrition (moderate): Acute Illness/Injury Evidenced By Suboptimal Energy Intake ( Moderate),Weight Loss (Severe) ,Physical Changes (Mild), Physical Changes (Moderate) Clinical Problem Acute Disease or Injury Related Malnutrition Etiology related to physiological changes causing decreased oral intakes Signs/Symptoms as evidenced by significant weight loss of 12.4% in ~2.5 months, decreased oral intakes < 75% of estimated nutrient needs and mild to moderate muscle and fat wasting (anabaptist , clavicle, buccal, orbital, etc.). Status Active Problem Recommendation Dietitian Recommendations/Changes Continue with Regular - General diet for liberalization. Order Ensure Plus High Protein 120mL 4x/d w/ medpass to help increase oral intakes. Will reassess oral intakes upon f/u. Lab / Micro Data Result Diagrams: 10/09/22 05:12 10/09/22 05:12 Labs: Laboratory Results - last 24 hr 10/08/22 15:19: Hgb 12.4 L, Hct 37.5 L 10/09/22 05:12: WBC 11.6 H, RBC 4.07 L, Hgb 12.1 L, Hct 36.1 L, MCV 88.7, MCH 29.7, MCHC 33.5, RDW Std Deviation 46.1 H, RDW Coeff of Cynthia 14.3, Plt Count 466 H, MPV 10.1, Immature Gran % (Auto) 0.800, Neut % (Auto) 87.0 H, Lymph % (Auto) 3.4 L, [place] % (Auto) 7.9, Eos % (Auto) 0.7, Baso % (Auto) 0.2, Absolute Neuts (auto) 10.1 H, Absolute Lymphs (auto) 0.40 L, Nucleated RBC % 0, Differential Comment SCANNED 10/09/22 05:12: Sodium 134 L, Potassium 3.9, Chloride 102, Carbon Dioxide 27.0, Anion Gap 5, BUN 25 H, Creatinine 0.47 L, Estim Creat Clear Calc 47.67, Est GFR (MDRD) Af Amer 222, Est GFR (MDRD) Non-Af 184, BUN/Creatinine Ratio 52.9 H, Glucose 108 H, Calcium 8.4 L Micro: Microbiology 10/06/22 00:22 Sputum, Expectorated/Coughed Gram Stain - Final 10/06/22 00:22 Sputum, Expectorated/Coughed Respiratory Culture - Final Haemophilus influenzae 10/05/22 23:20 Mucosa - Nasopharyngeal Respiratory Panel (PCR) - Final Influenza A (Subtype H1) 10/06/22 02:03 Urine, Clean Catch Legionella Antigen - Final 10/06/22 02:03 Urine, Clean Catch Streptococcus pneumoniae Antigen (M - Final 10/05/22 17:00 Nasal Secretion SARS-CoV-2 Antigen (Rapid) - Final Physical Exam Narrative Physical exam: General: Alert, Oriented x3, Cooperative, appears frail, on 4 L oxygen HEENT: Atraumatic Oral: Moist Mucosa Neck: Supple Lungs: Diminished to auscultation Cardiovascular: HS I+II, regular, no murmurs Abdomen: Bowel Sounds Present, Soft, Non Tender Extremities: No edema Skin: No rashes, No breakdown Neurological: Grossly intact Psych/Mental Status: Appropriate Assessment & Plan Assessment/Plan (1) CAP (community acquired pneumonia): PLAN: Plan 1. Acute hypoxia secondary to haemophilus influenzae/influenza A Patient is on 4 L of oxygen, continue to encourage use of incentive spirometer Wean off for SPO2 more than 94% 2. Acute Haemophilus influenzae and influenza A pneumonia Urine Legionella and streptococcal antigen negative Continue on IV ceftriaxone and azithromycin as well as Tamiflu 3. Hypertension, controlled, on continue with Coreg 4. GERD, continue PPI 5. Chronic hyponatremia, likely secondary to SIADH, sodium is 134, continue to trend 6. Malnutrition, severe protein calorie, nutrition consulted, continue supplements 7. DVT prophylaxis?Lovenox subcu Charges/Coding Visit Charges Inpatient E&M: 23720 Subs Hosp L2
[2022-10-09] MEDS: Senna/Docusate Sodium 1 Tablet 2 TABLET PO (17:40)
[2022-10-10 02:46] VITALS: BP 121/69; PULSE 84; RESP 16; TEMP 36.6; O2SAT 93
[2022-10-10 08:00] VITALS: BP 99/66; PULSE 92; RESP 18; TEMP 36.6; O2SAT 94
[2022-10-10 08:06] VITALS: BP 99/66; PULSE 92; RESP 18; TEMP 36.6; O2SAT 91
[2022-10-10] MEDS: Oseltamivir Phosphate 75 MG Capsule PO (08:18)
[2022-10-10] MEDS: Azithromycin 250 MG Tablet 500 MG PO (08:18)
[2022-10-10] MEDS: Pantoprazole Sodium 40 MG Tablet PO (08:18)
[2022-10-10] MEDS: Enoxaparin 40 MG/0.4 ML Syringe SC (08:19)
[2022-10-10 08:58] VITALS: O2SAT 94
[2022-10-10 09:40] VITALS: O2SAT 91; O2SAT 92; O2SAT 94
[2022-10-10 10:07] VITALS: BP 105/64; PULSE 94; RESP 20; TEMP 36.6; O2SAT 92
--- NOTE | 2022-10-10 10:22 | CASEMGMT ---
Pt does not qualify for home oxygen. DIANE CM in to pt room, pt states he does not feel that he needs any therapy post dc. States his will make him get up. Pt denies any homegoing needs and is ready for dc.
--- NOTE | 2022-10-10 10:49 | DCINST_ITS ---
Discharge Instructions Follow Up Care Test Results: Test results from this visit will be discussed in further detail at your follow- up appointment, if applicable. Discharge Plan Admission Admit Date/Time: 10/05/22 21:45 Primary Reason for Your Visit: Pneumonia/Influenza A Attending Provider: Maricruz Mckeon Primary Care Provider: Corwin Bianchi Consulting Providers: Analy Michele ; Tariq Smith Instructions Additional Instructions / Restrictions: Continue to monitor your oxygen levels with a pulse oximeter. Complete your antibiotics and Tamiflu Discharge Orders/Prescriptions Prescriptions: New oseltamivir 75 mg Capsule 75 mg PO BID 1 Days Qty: 1 0RF cefdinir 300 mg capsule 300 mg PO BID 5 Days Qty: 10 0RF azithromycin 500 mg tablet 500 mg PO DAILY 3 Days Qty: 3 0RF albuterol sulfate [Ventolin HFA] 90 mcg/actuation HFA aerosol inhaler 2 puff inhalation Q4H PRN (Reason: shortness of breath or wheezing) Qty: 8.5 0RF Continued ascorbic acid (vitamin C) 500 mg Tablet 500 mg PO DAILY pantoprazole 40 mg tablet,delayed release (DR/EC) 40 mg PO DAILY Label Comments: TAKE 1 TABLET BY MOUTH EVERY DAY cholecalciferol (vitamin D3) 25 mcg (1,000 unit) Tablet 25 mcg PO DAILY Multi Vitamin Pack 1 packet PO/SL DAILY carvedilol 3.125 mg tablet 3.125 mg PO BID Qty: 180 3RF Rx Instructions: must administer with a meal/food Referrals / Follow Up: Corwin Bianchi DO [Primary Care Provider] - In 1 Week Disposition Disposition (needs filled in before D/C Order can be placed): Home, Self Care
--- NOTE | 2022-10-10 11:02 | PCM.DC.SUM ---
Providers Date of Admission: 10/05/22 Date of Discharge: 10/10/22 Primary Care Physician: Dr. Corwin Bianchi DO Reason For Visit: CAP Diagnosis Discharge Diagnosis (1) CAP (community acquired pneumonia): Status: Acute Code(s): J18.9 - Pneumonia, unspecified organism Plan 1. Acute hypoxia secondary to haemophilus influenzae/influenza A 2. Acute Haemophilus influenzae and influenza A pneumonia 3. Hypertension 4. GERD 5. Chronic hyponatremia, likely secondary to SIADH 6. Malnutrition, severe protein calorie Medications at Discharge Home Medications carvedilol 3.125 mg tablet 3.125 mg PO BID #180 tabs 09/04/22 Multi Vitamin Pack 1 packet PO/SL DAILY SUPPLEMENT 10/05/22 ascorbic acid (vitamin C) 500 mg tablet 500 mg PO DAILY SUPPLEMENT 10/05/22 cholecalciferol (vitamin D3) 25 mcg (1,000 unit) tablet 25 mcg PO DAILY SUPPLEMENT 10/05/22 pantoprazole 40 mg tablet,delayed release 40 mg PO DAILY GERD 10/05/22 albuterol sulfate 90 mcg/actuation aerosol inhaler (Ventolin HFA) 2 puff inhalation Q4H PRN shortness of breath or wheezing #8.5 grams 10/10/22 azithromycin 500 mg tablet 500 mg PO DAILY 3 days #3 tabs 10/10/22 cefdinir 300 mg capsule 300 mg PO BID 5 days #10 caps 10/10/22 oseltamivir 75 mg capsule 75 mg PO BID 1 day #1 cap 10/10/22 Hospital Course Operations None Procedures None Summary of Care Provided Minutes Spent on Discharge: 35 Hospital Course: 89-year-old male with past medical history of prostate CA who comes in with cough and generalized weakness. Patient had a scheduled cataract surgery and preoperatively was found to be hypoxic. Surgery was consulted. He presented to the emergency room. He had elevated white cell count and hypoxia. His chest x-ray showed bilateral infiltrate and was started on antibiotics. Respiratory panel was positive for influenza A. Sputum cultures grew haemophilus influenza. Patient did require oxygen during this hospital stay. It is gradually improving he did not qualify for oxygen at discharge. He was discharged to complete Tamiflu and also cefdinir and azithromycin for total of 1 week course. He will need to follow-up with his primary care doctor within 1 week. Physical Exam Narrative Physical exam: General: Alert, Oriented x3, Cooperative, appears frail, off oxygen HEENT: Atraumatic Oral: Moist Mucosa Neck: Supple Lungs: Diminished to auscultation Cardiovascular: HS I+II, regular, no murmurs Abdomen: Bowel Sounds Present, Soft, Non Tender Extremities: No edema Skin: No rashes, No breakdown Neurological: Grossly intact Psych/Mental Status: Appropriate Medical Records Data Medical Nutrition Assessment Dietitian: Malnutrition Criteria Met Start: 10/06/22 21:14 Freq: Status: Active Protocol: Document 10/06/22 16:25 [id number] (Rec: 10/06/22 21:14 [id number] [id number]) Nutrition Malnutrition Evidence of Malnutrition Exists Yes Malnutrition (moderate): Acute Illness/Injury Evidenced By Suboptimal Energy Intake ( Moderate),Weight Loss (Severe) ,Physical Changes (Mild), Physical Changes (Moderate) Clinical Problem Acute Disease or Injury Related Malnutrition Etiology related to physiological changes causing decreased oral intakes Signs/Symptoms as evidenced by significant weight loss of 12.4% in ~2.5 months, decreased oral intakes < 75% of estimated nutrient needs and mild to moderate muscle and fat wasting (denominational , clavicle, buccal, orbital, etc.). Status Active Problem Recommendation Dietitian Recommendations/Changes Continue with Regular - General diet for liberalization. Order Ensure Plus High Protein 120mL 4x/d w/ medpass to help increase oral intakes. Will reassess oral intakes upon f/u. Weight / BMI Weight Weight: 52.8 kg Body Mass Index (BMI) 20.0 ABG / Lab / Microbiology Data Result Diagrams: 10/09/22 05:12 10/09/22 05:12 Microbiology: Microbiology 10/06/22 00:22 Sputum, Expectorated/Coughed Gram Stain - Final 10/06/22 00:22 Sputum, Expectorated/Coughed Respiratory Culture - Final Haemophilus influenzae 10/05/22 23:20 Mucosa - Nasopharyngeal Respiratory Panel (PCR) - Final Influenza A (Subtype H1) 10/06/22 02:03 Urine, Clean Catch Legionella Antigen - Final 10/06/22 02:03 Urine, Clean Catch Streptococcus pneumoniae Antigen (M - Final 10/05/22 17:00 Nasal Secretion SARS-CoV-2 Antigen (Rapid) - Final D/C Instructions Discharge Diet: No restrictions Meaningful Use Info Meaningful Use Diagnoses (Choose all that apply): None applicable Discharge Plan Admission Admit Date/Time: 10/05/22 21:45 Primary Reason for Your Visit: Pneumonia/Influenza A Attending Provider: Maricruz Mckeon Primary Care Provider: Corwin Bianchi Consulting Providers: Analy Michele ; Tariq Smith Instructions Additional Instructions / Restrictions: Continue to monitor your oxygen levels with a pulse oximeter. Complete your antibiotics and Tamiflu Discharge Orders/Prescriptions Prescriptions: New oseltamivir 75 mg Capsule 75 mg PO BID 1 Days Qty: 1 0RF cefdinir 300 mg capsule 300 mg PO BID 5 Days Qty: 10 0RF azithromycin 500 mg tablet 500 mg PO DAILY 3 Days Qty: 3 0RF albuterol sulfate [Ventolin HFA] 90 mcg/actuation HFA aerosol inhaler 2 puff inhalation Q4H PRN (Reason: shortness of breath or wheezing) Qty: 8.5 0RF Continued ascorbic acid (vitamin C) 500 mg Tablet 500 mg PO DAILY pantoprazole 40 mg tablet,delayed release (DR/EC) 40 mg PO DAILY Label Comments: TAKE 1 TABLET BY MOUTH EVERY DAY cholecalciferol (vitamin D3) 25 mcg (1,000 unit) Tablet 25 mcg PO DAILY Multi Vitamin Pack 1 packet PO/SL DAILY carvedilol 3.125 mg tablet 3.125 mg PO BID Qty: 180 3RF Rx Instructions: must administer with a meal/food Referrals / Follow Up: Corwin Bianchi DO [Primary Care Provider] - In 1 Week Disposition Disposition (needs filled in before D/C Order can be placed): Home, Self Care Charges/Coding Visit Charges Inpatient E&M: 34196 Disch Hosp
== END 2022-10-10 13:15 | disposition home or self-care (01) | DRG 193 ==
LOC: ED 21:24 → MS3 21:30
PROVIDERS: Internal Medicine; Admitting Provider Internal Medicine; Emergency Provider Student in an Organized Health Care Education/Training Program; PCP Family Medicine; Visit Provider Internal Medicine
DX: J10.08 Influenza due to other identified influenza virus with other specified pneumonia (principal); E43 Unspecified severe protein-calorie malnutrition; E22.2 Syndrome of inappropriate secretion of antidiuretic hormone; J14 Pneumonia due to Hemophilus influenzae; K21.9 Gastro-esophageal reflux disease without esophagitis; I10 Essential (primary) hypertension; R09.02 Hypoxemia; Z85.46 Personal history of malignant neoplasm of prostate; Z68.20 Body mass index [BMI] 20.0-20.9, adult
CPT/HCPCS: 36415; 71045; 71275; 80048; 80053; 83735; 83880; 84100; 84484; 85014; 85018; 85025; 85379; 87070; 87077; 87205; 87449; 87633; 87635; 87811; 93005; 94760; 97116; 97161; 97166; 97530; 97535; 97802; 97803; 99251; 99283; J7050; Q9967; A4216; G0463; J0696; U0003; U0005

== ENCOUNTER → 2023-03-07 | Outpatient (CLI) | payer MEDICARE, OTHER, SELFPAY ==
[2023-03-07 12:46] LABS: PSA,Total- Diagnostic 0.05 ng/mL (0.0-4.0)
== END | disposition home or self-care (01) ==
LOC: LAB 11:31
PROVIDERS: PCP Family Medicine; Referring Provider Urology; Visit Provider Urology
DX: C61 Malignant neoplasm of prostate (principal)
CPT/HCPCS: 36415; 84153

== ENCOUNTER → 2023-08-08 | Outpatient (CLI) | payer MEDICARE, OTHER, SELFPAY ==
--- NOTE | 2023-08-08 09:49 | ECHOD_ITS ---
Reason For Study: DILATED AORTIC ROOT, CMP Procedure This was a 2D Doppler, Color Flow transthoracic echocardiogram. Exam performed in department. Left Ventricle Normal LV size. Mild concentric left ventricular hypertrophy. Sigmoid septum. The left ventricular ejection fraction is 60 %. Stage 1 diastolic dysfunction. Right Ventricle Normal right ventricle. Atria The left and right atria are normal. Mitral Valve Trivial mitral valve insufficiency. Tricuspid Valve Mild tricuspid valve insufficiency. Normal pulmonary artery pressure. Aortic Valve Trisinus/trileaflet aortic valve. Mild (1+) aortic valve insufficiency. Pulmonic Valve Mild (1+) pulmonic valve insufficiency. Great Vessels Mildly dilated aortic root. Pericardium/Pleural No pericardial effusion. MMode/2D Measurements & Calculations LVIDd: 4.3 cm IVSd: 1.2 cm Ao root diam: 3.9 cm LVIDs: 3.1 cm LVPWd: 1.1 cm RVDd: 4.1 cm FS: 27.7 % LAV(MOD-bp): 58.1 ml LVAd ap4: 36.0 cm2 LVAd ap2: 29.9 cm2 LAV(MOD-bp) Indexed: 30.8 ml/m2 LVLd ap4: 8.9 cm LVLd ap2: 8.2 cm LAV(MOD-sp2): 57.5 ml EDV(MOD-sp4): 120.9 ml EDV(MOD-sp2): 89.8 ml LAV(MOD-sp4): 58.7 ml EDV(sp4-el): 123.6 ml EDV(sp2-el): 92.9 ml LVAs ap4: 19.3 cm2 LVAs ap2: 16.4 cm2 LVLs ap4: 7.2 cm LVLs ap2: 7.1 cm ESV(MOD-sp4): 44.0 ml ESV(MOD-sp2): 34.7 ml ESV(sp4-el): 43.9 ml ESV(sp2-el): 32.1 ml EF(MOD-sp4): 63.6 % EF(MOD-sp2): 61.4 % EF(sp4-el): 64.5 % SV(MOD-sp4): 76.8 ml SV(MOD-sp2): 55.1 ml SV(sp4-el): 79.7 ml LA dimension(2D): 4.0 cm LA A4 area: 19.9 cm2 RA A4 area: 17.2 cm2 TAPSE: 2.7 cm Time Measurements MV dec time: 0.23 sec Doppler Measurements & Calculations MV E max mj: 49.9 cm/sec Lat Peak E' Mj: 6.7 cm/sec Med Peak E' Mj: 4.5 cm/sec MV A max mj: 63.5 cm/sec E/E' lat: 7.4 E/E' med: 11.1 MV E/A: 0.79 MV V2 max: 74.5 cm/sec MV P1/2t max mj: 56.2 cm/sec Ao V2 max: 136.0 cm/sec MV max P.2 mmHg MV P1/2t: 86.3 msec Ao max P.4 mmHg MV V2 mean: 37.0 cm/sec MV dec slope: 190.9 cm/sec2 Ao V2 mean: 94.7 cm/sec MV mean P.64 mmHg Ao mean P.0 mmHg MV V2 VTI: 19.7 cm MVA(P1/2t): 2.5 cm2 Ao V2 VTI: 29.0 cm AV (velocity ratio): 0.91 AI max mj: 404.2 cm/sec LV V1 max: 107.5 cm/sec PA V2 max: 96.3 cm/sec AI max P.4 mmHg LV V1 max P.6 mmHg PA V2 mean: 71.4 cm/sec AI dec slope: 179.4 cm/sec2 LV V1 mean P.0 mmHg AI P1/2t: 659.9 msec LV V1 mean: 84.0 cm/sec LV V1 VTI: 26.5 cm TR max mj: 235.5 cm/sec TR max P.2 mmHg ECHO/Echo Complete Interpretation Summary Mild concentric left ventricular hypertrophy. The left ventricular ejection fraction is 60 %. Stage 1 diastolic dysfunction. Mild tricuspid valve insufficiency. Mildly dilated aortic root. Mild (1+) aortic valve insufficiency. Ordering Physician: Angelina Shaffer Referring Physician: Corwin Bianchi Performed By: Pita Penny RDCS, RVT
== END | disposition home or self-care (01) ==
LOC: CVS 09:44
PROVIDERS: PCP Family Medicine; Referring Provider Nurse Practitioner Gerontology; Visit Provider Nurse Practitioner Gerontology
DX: I51.9 Heart disease, unspecified (principal); I77.810 Thoracic aortic ectasia
CPT/HCPCS: 93306

== ENCOUNTER → 2023-09-11 | Outpatient (CLI) | payer MEDICARE, OTHER, SELFPAY ==
[2023-09-11 13:11] LABS: PSA,Total- Diagnostic 0.05 ng/mL (0.0-4.0)
== END | disposition home or self-care (01) ==
PROVIDERS: PCP Family Medicine; Referring Provider Urology; Visit Provider Urology
DX: C61 Malignant neoplasm of prostate (principal)
CPT/HCPCS: 36415; 84153

== ENCOUNTER → 2024-03-17 | Outpatient (CLI) | payer MEDICARE, OTHER, SELFPAY ==
[2024-03-17 08:29] LABS: PSA,Total- Diagnostic 0.08 ng/mL (0.0-4.0)
== END | disposition home or self-care (01) ==
LOC: LAB 07:06
PROVIDERS: PCP Family Medicine; Referring Provider Urology; Visit Provider Urology
DX: C61 Malignant neoplasm of prostate (principal)
CPT/HCPCS: 36415; 84153

== ENCOUNTER → 2024-09-21 | Outpatient (CLI) | payer MEDICARE, OTHER, SELFPAY ==
[2024-09-21 13:26] LABS: PSA,Total- Diagnostic 0.11 ng/mL (0.0-4.0)
== END | disposition home or self-care (01) ==
LOC: LAB 12:32
PROVIDERS: PCP Family Medicine; Referring Provider Urology; Visit Provider Urology
DX: C61 Malignant neoplasm of prostate (principal)
CPT/HCPCS: 36415; 84153

== ENCOUNTER → 2025-03-18 | Outpatient (CLI) | payer MEDICARE, OTHER, SELFPAY ==
[2025-03-18 13:42] LABS: PSA,Total- Diagnostic 0.12 ng/mL (0.00-4.00)
== END | disposition home or self-care (01) ==
LOC: LAB 12:11
PROVIDERS: PCP Family Medicine; Referring Provider Nurse Practitioner; Visit Provider Nurse Practitioner
DX: C61 Malignant neoplasm of prostate (principal)
CPT/HCPCS: 36415; 84153

== ENCOUNTER → 2025-09-15 | Outpatient (CLI) | payer MEDICARE, OTHER, SELFPAY ==
[2025-09-15 11:47] LABS: PSA,Total- Diagnostic 0.12 ng/mL (0.00-4.00)
== END | disposition home or self-care (01) ==
PROVIDERS: PCP Family Medicine; Referring Provider Urology; Visit Provider Urology
DX: C61 Malignant neoplasm of prostate (principal)
CPT/HCPCS: 36415; 84153